=== PATIENT | female | born 1970 | race Caucasian/White ===

== ENCOUNTER → 2018-05-15 13:32 | Outpatient (CLI) | payer BC, SELFPAY ==
--- NOTE | 2018-05-15 13:36 | US_ITS ---
US transvaginal HISTORY: Enlarged uterus, pelvic pain ITS.REASON: US T/V- Pelvic pain check for fibroids ORDERING PHYSICIAN: Amy Santamaria MD PATIENT AGE: 47 years Comparison: None FINDINGS: UTERUS: The uterus measures 10 x 6 x 7 cm. Combined endometrial thickness is 9 mm. The uterus is retroverted. There is a 3.8 x 3 cm fibroid in the lower uterine segment. 3 cm fibroid also noted in the fundal area. RIGHT OVARY: 3 x 2.7 cm. There is a 2.9 x 2.4 cm cyst within the right ovary with low-level internal echoes consistent with a hemorrhagic cyst. LEFT OVARY: 2.9 x 2 cm CUL-DE-SAC FLUID: Small amount fluid is present in posterior cul-de-sac and around the right ovary OTHER FINDINGS: None IMPRESSION: 1. Enlarged uterus with fibroid involvement. The endometrium is upper normal at 9 mm 2. 2.9 cm hemorrhagic ovarian cyst on the right. 3. Small amount of fluid in the cul-de-sac and around the right ovary
== END ==
PROVIDERS: PCP Family Medicine; Visit Provider Obstetrics & Gynecology
DX: D21.9 Benign neoplasm of connective and other soft tissue, unspecified (principal); R10.2 Pelvic and perineal pain
CPT/HCPCS: 76830

== ENCOUNTER → 2018-07-18 15:16 | Outpatient (CLI) | payer BC, SELFPAY ==
[2018-07-18 15:30] LABS: Basophils # 0.1 K/mm3 (0-0.2); Basophils % 0.7 % (0.1-2.0); Eosinophils # 0.2 K/mm3 (0.0-0.4); Eosinophils % 2.2 % (0.1-12.0); Hematocrit 37.6 % (37.0-47.0); Lymphocytes # 2.1 K/mm3 (0.7-4.5); Lymphocytes % 25.9 % (10-50); Mean Corpuscular HGB Conc 34.7 g/dL (31.8-35.4); Mean Corpuscular Hemoglobin 30.5 pg (27.0-31.2); Mean Corpuscular Volume 87.9 fl (81-99); Mean Platelet Volume 6.8 fl (7.4-10.4); Monocytes # 0.5 K/mm3 (0.1-1.0); Monocytes % 5.6 % (1.7-9.3); Neutrophils # 5.2 K/mm3 (1.8-7.8); Neutrophils % 65.6 % (37.0-80.0); Platelet Count 361 K/mm3 (142-424); Red Blood Count 4.28 M/mm3 (4.20-5.40); Red Cell Distribution Width 12.1 % (11.5-17.5)
[2018-07-18 15:52] LABS: Anion Gap 10.5 mEq/L (5-15); Blood Urea Nitrogen 12 mg/dL (7-18); Calcium 8.7 mg/dL (8.5-10.1); Carbon Dioxide 29 mmol/L (21.0-32.0); Chloride 105 mmol/L (98-107); Creatinine,Serum 0.66 mg/dL (0.55-1.02); Estimated Glomerular Filt Rate 97 ml/min (>60); GFR (African American) 117 ML/MIN (>60); Potassium 3.5 mmoL/L (3.5-5.1); Sodium 141 mmol/L (136-145)
[2018-07-18 16:18] LABS: Glucose 86 mg/dL (74-106)
== END ==
PROVIDERS: Visit Provider Surgery
DX: Z01.818 Encounter for other preprocedural examination (principal); K46.9 Unspecified abdominal hernia without obstruction or gangrene
CPT/HCPCS: 36415; 80048; 85025

== ENCOUNTER → 2018-07-25 15:48 | Outpatient (CLI) | payer BC, SELFPAY ==
--- NOTE | 2018-07-25 15:55 | XR_ITS ---
XR chest 2V HISTORY: Shortness of breath ITS.REASON: SOB ORDERING PHYSICIAN: Kathy Sutton MD PATIENT AGE: 47 years COMPARISON: 11/24/2012 FINDINGS: The cardiomediastinal silhouette and pulmonary vascularity are within normal limits. The lungs are clear without infiltrates, suspicious nodules, or pleural effusions. No acute bony abnormalities. IMPRESSION: Negative chest, no acute finding
== END ==
PROVIDERS: PCP Emergency Medicine; Visit Provider Emergency Medicine
DX: R06.02 Shortness of breath (principal)
CPT/HCPCS: 71046

== ENCOUNTER 2018-07-30 06:01 | Inpatient (IN) ==
[2018-07-30 06:57] LABS: Basophils # 0.1 K/mm3 (0-0.2); Basophils % 0.9 % (0.1-2.0); Eosinophils # 0.1 K/mm3 (0.0-0.4); Eosinophils % 2.1 % (0.1-12.0); Hematocrit 44.9 % (37.0-47.0); Hemoglobin 14.9 g/dL (12.2-16.2); Lymphocytes # 0.6 K/mm3 (0.7-4.5); Lymphocytes % 10.6 % (10-50); Mean Corpuscular HGB Conc 33.2 g/dL (31.8-35.4); Mean Corpuscular Hemoglobin 29.7 pg (27.0-31.2); Mean Corpuscular Volume 89.5 fl (81-99); Mean Platelet Volume 7.2 fl (7.4-10.4); Monocytes # 0.4 K/mm3 (0.1-1.0); Monocytes % 7.8 % (1.7-9.3); Neutrophils # 4.2 K/mm3 (1.8-7.8); Neutrophils % 78.7 % (37.0-80.0); Platelet Count 264 K/mm3 (142-424); Red Blood Count 5.02 M/mm3 (4.20-5.40); Red Cell Distribution Width 12.4 % (11.5-17.5); White Blood Count 5.3 K/mm3 (4.8-10.8)
[2018-07-30 07:15] LABS: Albumin Level 3.4 gm/dL (3.4-5.0); Anion Gap 12.7 mEq/L (5-15); Bilirubin,Total 0.2 mg/dL (0.2-1.0); Calcium 8.4 mg/dL (8.5-10.1); Globulin 3.4 gm/dl (1.3-3.2); Potassium 3.7 mmoL/L (3.5-5.1); Total Protein,Serum 6.8 gm/dL (6.4-8.2)
--- NOTE | 2018-07-30 07:19 | Progress Note ---
[facility] Anesthesia Checklist - Patient Identification Patient Identification: Arm Band, Verbal (Name & ) - Structural Data Admitted From: Home Planned Operative Procedure/s: ROHAN/Umbilical hernia repair Consent for Planned Operative Procedure(s) Verified: Yes Verified Documents: Surgical Consent, History and Physical - NPO Status Verified Time NPO: 00:00 - Chart Verification Results Verified: CBC, HCG - Additional verifications Patient : No Anesthesia Reactions: No - Airway Assessment C-Spine Mobility Assessed: Yes TMJ Mobility Assessed: Yes Dentition: Good Dentition (Front upper crowns) - Neurological Assessment Level of Consciousness: Awake Hx Seizures: No Numbness or tingling in extremities: No - Anesthesia Plan Anesthesia Risk discussed: Yes Anesthesia Plan: Verified ASA Class: II Anesthesia Type: General (with intrathecal narcotic) [facility] History I have reviewed the patient's past medical history: Yes Medical History: Reports:: Gastroesophageal Reflux Disease(GERD) Denies:: Anxiety, Cancer, Chronic Obstructive Pulmonary Disease (COPD), Depression, Diabetes Mellitus Type 1, Diabetes Mellitus Type 2, Hyperlipidemia, Hypertension, MRSA, Seizures *Have you ever received a pneumonia vaccine?: No *Have you received a flu vaccine this season?: No Other Medical History: Reports: Anemia. Denies: Blood Transfusion Reaction Other Surgeries: Yes: Other Amputation: No Fractures: No - *Social History Educational Level: Completed High School Smoking Status: Never smoker Alcohol Intake: never Substance Use Type: denies use *Occupational Status:: employed Housing: house Household Members: spouse *Travel in the last 8 weeks: None - Psychiatric History Expresses thoughts of harming self/others: None Suicide Plan Description: No Plan Pschychiatric History:: Denies:: Anxiety, Depression Family Hx:: No significant family history
--- NOTE | 2018-07-30 10:48 | Operative Note ---
Date of procedure: 07/30/18 Pre-op Diagnosis:: Umbilical hernia Post-op Diagnosis:: Same Procedure performed:: Open repair of umbilical hernia with placement of medium sized Bard ventral X mesh (6.4 cm) Surgeon:: Jayden Winn MD MIXER LEVER OPERATOR:: Other Anesthesia: GETA Estimated blood loss (mL): 5 Clinical Note:: Patient is a 47-year-old white female originally referred by Dr. Amy Santamaria for umbilical hernia. Patient has seen Dr. Santamaria for symptoms of dyspareunia, dysfunctional uterine bleeding, and fibroids. She is scheduled for open total abdominal hysterectomy. Patient noted a hernia at her umbilical area. She has had this for several years. However it has increased in size and become more symptomatic. She was sent for surgical consultation for consideration of combined procedure under the same anesthetic. I had seen her a couple of weeks ago in the office. Tentative plan is for open hysterectomy and open umbilical hernia during the same anesthetic. Operative findings:: She had approximately a 15 mm defect with herniated preperitoneal fat with a redundant hernia sac. This was somewhat towards the supraumbilical location. Operative note:: She was maintained in the operating room after she had undergone gynecologic procedure Via Pfannenstiel incision. This was not closed and additional draping was applied to allow for umbilical hernia repair. Supraumbilical incision was made as the hernia was somewhat in a supraumbilical location. Dissection was carried down through subcutaneous tissues and hernia sac was encountered. There was herniated preperitoneal fat and hernia sac. Hernia sac was incised. Dissection was carried out dissecting free the herniated preperitoneal fatty tissues and redundant peritoneum of the hernia sac down to normal fascia. The defect measured about 15 mm or less. A medium sized Bard ventral X mesh measuring 6.4 cm in diameter was inserted into the peritoneal cavity via the umbilical hernia defect. The "tails" of the mesh were sutured superiorly and inferiorly to the fascial edges with several interrupted 2-0 Prolene sutures. The "tails" of the mesh were then cut flush with the fascia. Fascia was closed over the mesh with interrupted 0 Ethibond sutures. Next inspection and palpation via the low transverse Pfannenstiel incision was carried out which revealed good placement of the mesh with good fascial coverage. The umbilical sub-dermis was then reapproximated to the underlying fascia with a single 2-0 Vicryl suture. Skin was closed with 4-0 Monocryl in a subcuticular fashion. Dressing was applied. At the completion of the hernia repair gynecology proceeded with closure of Pfannenstiel incision. Condition: stable Disposition: PACU Specimens:: Hernia sac and contents Complications:: None immediately apparent
--- NOTE | 2018-07-30 11:40 | Operative Note ---
Date of procedure: 07/30/18 Pre-op Diagnosis:: 1. Chronic pelvic pain 2. Dyspareunia 3. Heavy menstrual bleeding 4. Uterine fibroids 5. Ventral wall hernia Post-op Diagnosis:: 1. Chronic pelvic pain 2. Dyspareunia 3. Heavy menstrual bleeding 4. Uterine fibroids 5. Ventral wall hernia Procedure performed:: Total abdominal hysterectomy, bilateral salpingectomy (concurrent hernia repair by general surgery, with separate operative note) Surgeon:: Amy Santamaria MD Anesthesia: GETA Estimated blood loss (mL): 400 Operative findings:: grossly enlarged uterus with multiple fibroids grossly normal appearing fallopian tubes and ovaries bilaterally Operative note:: The patient was taken to the operating room and general anesthesia was administe red without difficulty. She was prepped and draped in the supine position. A Pfannenstiel skin incision was made approximately 2 cm above the pubic symphysis with a scalpel and carried down to the underlying layer of fascia. The fascia was incised in the midline and extended laterally sharply. The rectus muscles were sharply dissected off the fascia and in the midline. The peritoneum was turned and sharply, with good visualization of the underlying structures. The peritoneal incision was extended bluntly. A survey of the patient's pelvis and abdomen revealed a grossly enlarged and bulky uterus, with numerous fibroid tumors. Bilateral ovaries and fallopian tubes appeared normal. At this time, the patient was placed in Trendelenburg and a Heber retractor was placed in the abdomen; the bowel was packed with moist laparotomy sponges. A double tooth tenaculum was placed on the uterine fundus and the uterus was elevated out of the pelvis. The round ligaments were identified and transected using Enseal. The anterior lip of the broad ligament was dissected medially on both sides and the bladder flap was created digitally. The posterior leaf of the broad ligament was dissected until the ureters were able to be identified on either side and noted to be free of the forthcoming adnexal pedicles. Infundibulopelvic ligaments were ligated/transected using Enseal on either side, with excellent hemostasis noted. The fallopian tubes on either side were clamped transected and the specimens were set aside for pathology. The uterine arteries were skeletonized on either side, and were clamped, ligated/transected using Enseal, with excellent hemostasis. The bladder flap was further bluntly dissected off the lower uterine segment with excellent hemostasis; some oozing was noted from the vesicouterine peritoneal reflection, with some blood tinged urine noted during the case, however no bladder injury was identified. The cardinal and uterosacral ligaments were clamped transected/ligated on both sides until the vaginal mucosa was entered. The vaginal incision was extended circumferentially with the Jorganson scissors; the uterus and cervix were removed abdominally and sent for pathology, along with the fallopian tubes. The vaginal cuff angles were closed 0 Vicryl [id number] sutures and were transfixed to the ipsilateral cardinal and uterosacral ligaments. The remainder of the vaginal cuff was closed with 0 Vicryl interrupted sutures. The pelvis was copiously irrigated with a solution of sterile water. The cuff had some oozing at the juncture of the vaginal mucosa and the bladder, requiring additional sutures to be placed for hemostasis. Again, the bladder was inspected for evidence of injury and not found. All pedicles were reexamined a nd remained hemostatic. All instruments were removed from the patient's abdomen, and Dr. Winn scrubbed in to perform the hernia repair; please see separate op note detailing that procedure. After the hernia repair was completed, the vaginal cuff and all pedicles were re-examined and noted to be hemostatic. The peritoneum was closed with 2-0 Vicryl in a running fashion. The fascia was closed with #1 Vicryl in a running fashion. The skin was closed with jonny. The patient tolerated the procedure well; sponge/lap/needle and instrument counts were correct 2. She was taken to the recovery room awake in stable condition. Estimated blood loss: 400 cc. Condition: stable Disposition: PACU Specimens:: Uterus, cervix, bilateral fallopian tubes Complications:: None
--- NOTE | 2018-07-30 11:54 | Progress Note ---
[facility] Anesthesia Record Part II Discharge Time: 12:20 Destination: Medical Surgical Department PACU nurse assessment reviewed?: Yes Patient Condition:: Good Anesthesia Complications:: None Swallowing reflex intact?: Yes Cyanosis?: No
--- NOTE | 2018-07-30 11:54 | Progress Note ---
[facility] Anesthesia Record Part I Intake, IV Amount: 1,700 Estimated blood loss (mL): 400 Urine output (mL): 200 Blood Products used (#): none Blood Pressure: 115/76 SaO2: 96 Pulse Rate: 87 Respiratory Rate: 12 Temperature: 97.5 F Patient is:: Drowsy, Nasal O2, Stable Stable to PACU at:: 11:50
[2018-07-31 06:40] LABS: Hematocrit 29.6 % (37.0-47.0)
[2018-07-31 07:01] LABS: Hemoglobin 9.9 g/dL (12.2-16.2)
[2018-07-31 07:05] LABS: Anion Gap 9.8 mEq/L (5-15); Potassium 3.8 mmoL/L (3.5-5.1)
[2018-07-31 07:17] LABS: Calcium 7.3 mg/dL (8.5-10.1)
--- NOTE | 2018-07-31 07:40 | Pharmacy Consult Notes ---
[facility] Pharmacy VTE Monitoring - Patient Demographics Admission date: 07/30/18 Report Date: 07/31/18 Time: 07:40 Allergies/Adverse Reactions: Patient Allergies No Known Allergies Allergy (Verified 07/30/18 06:26) Height: 1.57 m Weight: 65.317 kg - VTE Risk Labs: VTE Related Lab Results Hgb 9.9 g/dL (12.2-16.2) L D 07/31/18 06:10 Hct 29.6 % (37.0-47.0) L 07/31/18 06:10 Plt Count 264 K/mm3 (142-424) 07/30/18 06:44 BUN 15 mg/dL (7-18) 07/31/18 06:10 Creatinine 0.63 mg/dL (0.55-1.02) 07/31/18 06:10 Estimated Creat Clear 116 mL/min (50-200) 07/31/18 06:10 - Prophylaxis VTE Prophylaxis Ordered?: Yes Types of VTE Prophylaxis: IPCS Thigh High Location of Applied Device: Bilateral Lower Extremeties - VTE Diagnosis Confirmed Treatment or plan recommended: Continue Current Treatment
--- NOTE | 2018-07-31 22:49 | Progress Note ---
Internal Medicine - PN: Subj *Date: 07/31/18 *Time: 12:00 Interval history: POD #1 S/P ROHAN No complaints Ambulating and voiding without difficulty Urine clear Tolerating regular diet Asymptomatic with postop anemia Hgb 9.9 (14.9 at admission) Exam Vital signs and Labs for Last 24 Hours: Temp Pulse Resp BP Pulse Ox 98.7 F 86 16 106/70 L 95 07/31/18 19:53 07/31/18 19:53 07/31/18 19:53 07/31/18 19:53 07/31/18 19:53 Laboratory Results - last 24 hr 07/31/18 06:10: Hgb 9.9 L D, Hct 29.6 L 07/31/18 06:10: Sodium 138, Potassium 3.8, Chloride 104, Carbon Dioxide 28, Anion Gap 9.8, BUN 15, Creatinine 0.63, Estimated Creat Clear 116, Estimated GFR 102, Est GFR ( Amer) 124, Glucose 87, Calcium 7.3 L D I & O for Last 24 hours: Intake & Output 07/29/18 07/30/18 07/31/18 08/01/18 11:59 11:59 11:59 11:59 Intake Total 1700 / 1700 2204.4 / 2204.4 1260 / 1260 Output Total 810 / 810 800 / 800 Balance 1700 / 1700 1394.4 / 1394.4 460 / 460 Weight 144 lb 144 lb Narrative: CONSTITUTIONAL: no acute distress HEENT: mucous membranes moist PULMONARY: breathing unlabored without audible wheezes CV: no tachycardia or visible JVD; normal LE peripheral pulses ABD: soft, ND, no guarding. Appropriately tender. SKIN: incision well approximated with no drainage, erythema or induration EXT: 1+ edema LEs NEURO: alert/oriented, no altered mental status PSYCH: appropriate mood and demeanor without anxiety/depression Assessment and Plan (1) Postoperative anemia due to acute blood loss Current visit: Yes Status: Acute Category: Medical Code(s): D62 - Acute posthemorrhagic anemia (2) S/P hysterectomy Current visit: Yes Status: Acute Category: Surgical Code(s): Z90.710 - Acquired absence of both cervix and uterus (3) Uterine fibroid Current visit: No Status: Acute Category: Medical Code(s): D25.9 - Leiomyoma of uterus, unspecified (4) Dyspareunia Current visit: No Status: Acute Category: Medical (5) Heavy menstrual bleeding Current visit: No Status: Acute Category: Medical Code(s): N92.0 - Excessive and frequent menstruation with regular cycle (6) Umbilical hernia Current visit: No Status: Acute Category: Medical Code(s): K42.9 - Umbilical hernia without obstruction or gangrene (7) Pelvic pain Current visit: No Status: Acute Category: Medical Code(s): R10.2 - Pelvic and perineal pain (8) Enlarged uterus Problem details: palpable fibroid on pelvic exam Current visit: No Status: Acute Category: Medical Code(s): N85.2 - Hypertrophy of uterus - Assessment and plan all Dx Assessment and Plan for all problems:: Routine postop care Making appropriate progress following surgery Asymptomatic with postop anemia Anticipate discharge tomorrow
--- NOTE | 2018-08-01 14:32 | Progress Note ---
Internal Medicine - PN: Subj *Date: 08/01/18 *Time: 14:29 Interval history: POD #2 Patient has had increased nausea today and less po intake No abdominal distension and bowel sounds have been normal + flatus Voiding normal amount of clear urine No vaginal bleeding Exam Vital signs and Labs for Last 24 Hours: Temp Pulse Resp BP Pulse Ox 98.1 F 79 18 120/89 95 08/01/18 08:00 08/01/18 08:00 08/01/18 08:00 08/01/18 08:00 08/01/18 08:00 I & O for Last 24 hours: Intake & Output 07/30/18 07/31/18 08/01/18 08/02/18 11:59 11:59 11:59 11:59 Intake Total 1700 / 1700 2204.4 / 2204.4 2662 / 2662 Output Total 810 / 810 1100 / 1100 Balance 1700 / 1700 1394.4 / 1394.4 1562 / 1562 Weight 144 lb Narrative: CONSTITUTIONAL: no acute distress HEENT: mucous membranes moist PULMONARY: breathing unlabored without audible wheezes CV: no tachycardia or visible JVD; normal LE peripheral pulses ABD: soft, ND, no guarding. Appropriately tender SKIN: incision well approximated with no drainage, erythema or induration EXT: no edema LEs NEURO: alert/oriented, no altered mental status PSYCH: appropriate mood and demeanor without visible anxiety/depression Assessment and Plan (1) Postoperative anemia due to acute blood loss Current visit: Yes Status: Acute Category: Medical Code(s): D62 - Acute posthemorrhagic anemia (2) S/P hysterectomy Current visit: Yes Status: Acute Category: Surgical Code(s): Z90.710 - Acquired absence of both cervix and uterus (3) Uterine fibroid Current visit: No Status: Acute Category: Medical Code(s): D25.9 - L eiomyoma of uterus, unspecified (4) Dyspareunia Current visit: No Status: Acute Category: Medical (5) Heavy menstrual bleeding Current visit: No Status: Acute Category: Medical Code(s): N92.0 - Excessive and frequent menstruation with regular cycle (6) Umbilical hernia Current visit: No Status: Acute Category: Medical Code(s): K42.9 - Umbilical hernia without obstruction or gangrene (7) Pelvic pain Current visit: No Status: Acute Category: Medical Code(s): R10.2 - Pelvic and perineal pain (8) Enlarged uterus Problem details: palpable fibroid on pelvic exam Current visit: No Status: Acute Category: Medical Code(s): N85.2 - Hypertrophy of uterus - Assessment and plan all Dx Assessment and Plan for all problems:: Continue IV hydration with anti-emetics as necessary Discharge will be held until tomorrow in order to assess that she is sufficiently tolerating po Will repeat H/H tonight to f/u on postop anemia
[2018-08-01 19:09] LABS: Hemoglobin 9.3 g/dL (12.2-16.2)
[2018-08-01 19:11] LABS: Hematocrit 26.9 % (37.0-47.0)
--- NOTE | 2018-08-02 12:50 | Discharge Summary ---
General - General Admission date:: 07/30/18 Discharge date: 08/02/18 HPI HPI: Admitted for abdominal hysterectomy for management of pelvic pain, HMB and uterine fibroids Postop course complicated by nausea with some slower return to bowel function, but no signs of ileus or obstruction She is discharged home on POD #3 Hospital Course Hospital Course: as per HPI Objective Vital signs: Temp Pulse Resp BP Pulse Ox 97.9 F 56 L 18 139/85 95 08/02/18 08:05 08/02/18 08:05 08/02/18 08:05 08/02/18 08:05 08/02/18 08:05 Narrative: CONSTITUTIONAL: no acute distress HEENT: mucous membranes moist PULMONARY: breathing unlabored without audible wheezes CV: no tachycardia or visible JVD; normal LE peripheral pulses ABD: soft, NT/ND, no guarding SKIN: incision well approximated with no drainage, erythema or induration EXT: no edema LEs NEURO: alert/oriented, no altered mental status PSYCH: appropriate mood and demeanor without anxiety/depression Results Labs on day of discharge: Labs from last 24 hours 08/01/18 19:00 Hgb 9.3 L Hct 26.9 L DS: Diagnosis - Discharge Diagnosis (1) Postoperative anemia due to acute blood loss Status: Acute (2) S/P hysterectomy Status: Acute (3) Uterine fibroid Status: Acute (4) Dyspareunia Status: Acute (5) Heavy menstrual bleeding Status: Acute (6) Umbilical hernia Status: Acute (7) Pelvic pain Status: Acute (8) Enlarged uterus Status: Acute Problem details: palpable fibroid on pelvic exam Discharge Plan - Patient Discharge Instructions ACTIVITY: Limited activity DIET: regular diet Additional Instructions: NO HEAVY LIFTING, NO STRENUOUS ACTIVITY AND NOTHING IN THE VAGINA FOR 6 WEEKS. Patient Instructions: How to Care for a Surgical Wound, Hysterectomy -- Open Surgery, DI for Hernia Repair, Surgical Site Infection, DI for Postoperative Pain, How to Care for a Surgical Wound-Keeler - Follow up Plan Follow up with: Jayden Winn MD [Staff Physician] - 08/08/18 9:30 am Amy Santamaria MD [Staff Physician] - 08/08/18 10:15 am Disposition: Home, Self-Long Term Medications: Home Medications Medication Instructions Recorded Confirmed Type cyanocobalamin (vitamin B-12) 1,000 mcg PO DAILY 05/12/18 07/29/18 History 1,000 mcg capsule ferrous sulfate 325 mg (65 mg 325 mg PO DAILY tab 05/12/18 07/29/18 History iron) tablet fluticasone propionate 50 1 spray INTRANASAL HS 34 Days #16 g 05/12/18 07/29/18 History mcg/actuation nasal spray,suspension omeprazole 20 mg capsule,delayed 20 mg PO DAILY 30 Days cap 05/12/18 07/29/18 History release Ketorolac Tromethamine [Toradol 10 mg PO Q6H #40 tab 08/02/18 Rx 10mg tablet] Oxycodone HCl [OxyIR 5mg tablet] 5 mg PO Q4HP PRN #30 tab 08/02/18 Rx Promethazine HCl [Phenergan 25mg 25 mg PO Q6HP PRN #30 tab 08/02/18 Rx tab] Prescriptions/Medication Reconciliation: New Promethazine HCl [Phenergan 25mg tab] 25 mg PO Q6HP PRN #30 tab PRN Reason: Nausea And Vomiting Oxycodone HCl [OxyIR 5mg tablet] 5 mg PO Q4HP PRN #30 tab PRN Reason: Moderate Pain Ketorolac Tromethamine [Toradol 10mg tablet] 10 mg PO Q6H #40 tab Continue omeprazole 20 mg capsule,delayed release 20 mg PO DAILY 30 Days cap cyanocobalamin (vitamin B-12) 1,000 mcg capsule 1,000 mcg PO DAILY ferrous sulfate 325 mg (65 mg iron) tablet 325 mg PO DAILY tab fluticasone propionate 50 mcg/actuation nasal spray,suspension 1 spray INTRANASAL HS 34 Days #16 g
== END 2018-08-02 14:30 | disposition home or self-care (01) | DRG 742 ==
LOC: OR 06:01 → OB 12:30
PROVIDERS: ADMIT Obstetrics & Gynecology; ATTEND Obstetrics & Gynecology
CPT/HCPCS: 36415; 80048; 80053; 81001; 81025; 85014; 85018; 85025; 86850; 94761; 96374; C1781; J2405

== ENCOUNTER → 2018-09-23 14:08 | Outpatient (POV) | payer BC, SELFPAY ==
[2018-09-23 15:11] LABS: Basophils # 0.1 K/mm3 (0-0.2); Basophils % 0.6 % (0.1-2.0); Eosinophils # 0.2 K/mm3 (0.0-0.4); Hematocrit 37.3 % (37.0-47.0); Hemoglobin 12.6 g/dL (12.2-16.2); Lymphocytes # 2.2 K/mm3 (0.7-4.5); Lymphocytes % 25.9 % (10-50); Mean Corpuscular HGB Conc 33.7 g/dL (31.8-35.4); Mean Corpuscular Hemoglobin 28.6 pg (27.0-31.2); Mean Corpuscular Volume 84.8 fl (81-99); Mean Platelet Volume 6.8 fl (7.4-10.4); Monocytes # 0.6 K/mm3 (0.1-1.0); Monocytes % 6.8 % (1.7-9.3); Neutrophils # 5.6 K/mm3 (1.8-7.8); Neutrophils % 64.8 % (37.0-80.0); Platelet Count 364 K/mm3 (142-424); Red Cell Distribution Width 12.7 % (11.5-17.5); White Blood Count 8.7 K/mm3 (4.8-10.8)
[2018-09-23 17:20] LABS: Alanine Aminotransferase 19 U/L (12-78); Albumin Level 3.9 gm/dL (3.4-5.0); Albumin/Globulin Ratio 1.3 (1.1-1.8); Alkaline Phosphatase 54 U/L (46-116); Aspartate Amino Transferase 7 U/L (15-37); Bilirubin,Total 0.1 mg/dL (0.2-1.0); Blood Urea Nitrogen 12 mg/dL (7-18); Calcium 9.1 mg/dL (8.5-10.1); Carbon Dioxide 25 mmol/L (21.0-32.0); Chloride 103 mmol/L (98-107); Estimated Glomerular Filt Rate 108 ml/min (>60); GFR (African American) 131 ML/MIN (>60); Glucose 94 mg/dL (74-106); Sodium 140 mmol/L (136-145); Total Protein,Serum 6.9 gm/dL (6.4-8.2)
[2018-09-25 10:51] LABS: Hep A Ab, IgM Negative (Negative); Hepatitis B Core Antibody IgM Negative (Negative); Hepatitis B Surface Antigen Negative (Negative)
[2018-09-26 08:06] LABS: Hepatitis C Antibody <0.1 s/co ratio (0.0-0.9)
[2018-09-26 08:12] LABS: QuantiFERON-TB Gold Plus Negative (Negative)
== END ==
PROVIDERS: Visit Provider Dermatology
DX: L40.0 Psoriasis vulgaris (principal); Z79.899 Other long term (current) drug therapy
CPT/HCPCS: 36415; 80053; 80074; 85025; 86480

== ENCOUNTER → 2021-02-07 17:45 | Outpatient (CLI) | payer BC, SELFPAY ==
--- NOTE | 2021-02-07 17:56 | XR_ITS ---
PROCEDURE INFORMATION: Exam: XR Chest Exam date and time: 02/07/21 05:56 PM Age: 50 years old Clinical indication: Pain; On breathing; Additional info: Covidsymptoms TECHNIQUE: Imaging protocol: XR of the chest. Views: 1 view. COMPARISON: CR CXR2V XR chest 2V 07/25/18 03:56 PM FINDINGS: Lungs: Unremarkable. No consolidation. Pleural spaces: Unremarkable. No pleural effusion. No pneumothorax. Heart/Mediastinum: Unremarkable. No cardiomegaly. Bones/joints: Unremarkable. IMPRESSION: No acute findings.
[2021-02-07 18:39] LABS: Adenovirus,PCR Not Detected (NotDetected); Bordetella Pertussis Not Detected (NotDetected); Chlamydophila Pneumoniae, PCR Not Detected (NotDetected); Coronavirus 229E Not Detected (NotDetected); Coronavirus NL63 Not Detected (NotDetected); Coronavirus OC43 Not Detected (NotDetected); Coronovirus HKU1,PCR Not Detected (NotDetected); Human Metapneumovirus Not Detected (NotDetected); Influenza A, PCR Not Detected (NotDetected); Influenza AH1, 2009 Not Detected (NotDetected); Influenza AH1, PCR Not Detected (NotDetected); Influenza AH3,PCR Not Detected (NotDetected); Influenza B, PCR Not Detected (NotDetected); Mycoplasma Pneumoniae, PCR Not Detected (NotDetected); Parainfluenza 1, PCR Not Detected (NotDetected); Parainfluenza 2, PCR Not Detected (NotDetected); Parainfluenza 3, PCR Not Detected (NotDetected); Parainfluenza 4, PCR Not Detected (NotDetected); Respiratory Syncytial Virus Not Detected (NotDetected); Rhinovirus/Enterovirus Not Detected (NotDetected)
[2021-02-07 18:54] LABS: Basophils # 0.1 K/mm3 (0-0.2); Basophils % 0.7 % (0.1-2.0); Eosinophils # 0.2 K/mm3 (0.0-0.4); Eosinophils % 2.1 % (0.1-12.0); Hematocrit 38.4 % (37.0-47.0); Hemoglobin 12.7 g/dL (12.2-16.2); Lymphocytes # 2.2 K/mm3 (0.7-4.5); Lymphocytes % 25.7 % (10-50); Mean Corpuscular HGB Conc 32.9 g/dL (31.8-35.4); Mean Corpuscular Hemoglobin 29.7 pg (27.0-31.2); Mean Platelet Volume 7.2 fl (7.4-10.4); Monocytes # 0.6 K/mm3 (0.1-1.0); Monocytes % 7.3 % (1.7-9.3); Neutrophils # 5.6 K/mm3 (1.8-7.8); Neutrophils % 64.1 % (37.0-80.0); Platelet Count 379 K/mm3 (142-424); Red Blood Count 4.27 M/mm3 (4.20-5.40); Red Cell Distribution Width 12.3 % (11.5-17.5); White Blood Count 8.7 K/mm3 (4.8-10.8)
[2021-02-07 19:15] LABS: Strep Scrn Group A (Rapid) Negative (Negative)
== END ==
PROVIDERS: PCP Nurse Practitioner; Visit Provider Nurse Practitioner
DX: Z20.822 Contact with and (suspected) exposure to COVID-19 (principal)
CPT/HCPCS: 71045; 85025; 87430; 87486; 87581; 87633; 87798

== ENCOUNTER → 2021-03-07 18:08 | Outpatient (CLI) | payer BC, SELFPAY ==
[2021-03-07 18:55] LABS: Basophils # 0.1 K/mm3 (0-0.2); Basophils % 1.3 % (0.1-2.0); Eosinophils # 0.3 K/mm3 (0.0-0.4); Eosinophils % 3.3 % (0.1-12.0); Hematocrit 39.6 % (37.0-47.0); Hemoglobin 13.3 g/dL (12.2-16.2); Lymphocytes # 2.1 K/mm3 (0.7-4.5); Lymphocytes % 22.9 % (10-50); Mean Corpuscular HGB Conc 33.6 g/dL (31.8-35.4); Mean Corpuscular Hemoglobin 30.5 pg (27.0-31.2); Mean Corpuscular Volume 90.7 fl (81-99); Mean Platelet Volume 8.1 fl (7.4-10.4); Monocytes # 0.6 K/mm3 (0.1-1.0); Monocytes % 6.6 % (1.7-9.3); Neutrophils # 5.9 K/mm3 (1.8-7.8); Neutrophils % 65.8 % (37.0-80.0); Platelet Count 362 K/mm3 (142-424); Red Blood Count 4.37 M/mm3 (4.20-5.40); Red Cell Distribution Width 12.8 % (11.5-17.5); Strep Scrn Group A (Rapid) Negative (Negative); White Blood Count 8.9 K/mm3 (4.8-10.8)
== END ==
PROVIDERS: PCP Family Medicine; Visit Provider Nurse Practitioner
DX: Z20.822 Contact with and (suspected) exposure to COVID-19 (principal)
CPT/HCPCS: 36415; 85025; 87430

== ENCOUNTER → 2021-04-11 14:30 | Outpatient (CLI) | payer BC, SELFPAY ==
[2021-04-11 15:32] LABS: Coronavirus 19, PCR Not Detected (NotDetected); Influenza A, PCR Not Detected (NotDetected); Influenza B, PCR Not Detected (NotDetected)
[2021-04-11 15:41] LABS: Basophils # 0.1 K/mm3 (0-0.2); Basophils % 1.3 % (0.1-2.0); Eosinophils # 0.2 K/mm3 (0.0-0.4); Eosinophils % 2.5 % (0.1-12.0); Hematocrit 43.1 % (37.0-47.0); Hemoglobin 14.5 g/dL (12.2-16.2); Lymphocytes % 25.3 % (10-50); Mean Corpuscular HGB Conc 33.7 g/dL (31.8-35.4); Mean Corpuscular Hemoglobin 30.2 pg (27.0-31.2); Mean Corpuscular Volume 89.6 fl (81-99); Mean Platelet Volume 8.1 fl (7.4-10.4); Monocytes # 0.5 K/mm3 (0.1-1.0); Monocytes % 6.9 % (1.7-9.3); Platelet Count 375 K/mm3 (142-424); Red Blood Count 4.81 M/mm3 (4.20-5.40); Red Cell Distribution Width 12.7 % (11.5-17.5); White Blood Count 7.8 K/mm3 (4.8-10.8)
[2021-04-11 15:58] LABS: Strep Scrn Group A (Rapid) Negative (Negative)
== END ==
PROVIDERS: PCP Family Medicine; Visit Provider Nurse Practitioner
DX: Z20.822 Contact with and (suspected) exposure to COVID-19 (principal)
CPT/HCPCS: 36415; 85025; 87430; C9803; U0003; U0005

== ENCOUNTER → 2021-10-25 12:45 | Outpatient (CLI) | payer BC, SELFPAY | PROVIDERS: PCP Family Medicine; Visit Provider Nurse Practitioner | DX: Z20.822 Contact with and (suspected) exposure to COVID-19 (principal) | CPT/HCPCS: 87275; 87276; C9803; U0003; U0005 ==

== ENCOUNTER → 2022-01-25 10:25 | Outpatient (CLI) | payer BC, SELFPAY ==
[2022-01-25 17:57] LABS: Adenovirus,PCR Not Detected (NotDetected); Bordetella Pertussis Not Detected (NotDetected); Chlamydophila Pneumoniae, PCR Not Detected (NotDetected); Coronavirus 19, PCR Not Detected (NotDetected); Coronavirus 229E Not Detected (NotDetected); Coronavirus NL63 Not Detected (NotDetected); Coronavirus OC43 Not Detected (NotDetected); Coronovirus HKU1,PCR Not Detected (NotDetected); Influenza A, PCR Not Detected (NotDetected); Influenza AH1, 2009 Not Detected (NotDetected); Influenza AH1, PCR Not Detected (NotDetected); Influenza AH3,PCR Not Detected (NotDetected); Influenza B, PCR Not Detected (NotDetected); Mycoplasma Pneumoniae, PCR Not Detected (NotDetected); Parainfluenza 1, PCR Not Detected (NotDetected); Parainfluenza 2, PCR Not Detected (NotDetected); Parainfluenza 3, PCR Not Detected (NotDetected); Parainfluenza 4, PCR Not Detected (NotDetected); Respiratory Syncytial Virus Not Detected (NotDetected); Rhinovirus/Enterovirus Not Detected (NotDetected)
[2022-01-26 19:42] LABS: Human Metapneumovirus Detected (NotDetected)
== END ==
PROVIDERS: PCP Nurse Practitioner; Visit Provider Nurse Practitioner
DX: Z20.822 Contact with and (suspected) exposure to COVID-19 (principal); J06.9 Acute upper respiratory infection, unspecified; B97.81 Human metapneumovirus as the cause of diseases classified elsewhere
CPT/HCPCS: 87581; 87632; 87798; C9803; U0003; U0005

== ENCOUNTER → 2022-02-14 07:14 | Outpatient (CLI) | payer BC, SELFPAY ==
[2022-02-14 17:51] LABS: Basophils # 0.1 K/mm3 (0-0.2); Basophils % 0.9 % (0.1-2.0); Eosinophils # 0.2 K/mm3 (0.0-0.4); Eosinophils % 2.6 % (0.1-12.0); Hematocrit 40.5 % (37.0-47.0); Lymphocytes # 2.2 K/mm3 (0.7-4.5); Lymphocytes % 23.9 % (10-50); Mean Corpuscular HGB Conc 32.1 g/dL (31.8-35.4); Mean Corpuscular Hemoglobin 29.6 pg (27.0-31.2); Mean Corpuscular Volume 92.1 fl (81-99); Monocytes # 0.6 K/mm3 (0.1-1.0); Monocytes % 6.9 % (1.7-9.3); Neutrophils # 6.1 K/mm3 (1.8-7.8); Neutrophils % 65.8 % (37.0-80.0); Platelet Count 357 K/mm3 (142-424); Red Cell Distribution Width 12.8 % (11.5-17.5); White Blood Count 9.3 K/mm3 (4.8-10.8)
== END ==
PROVIDERS: PCP Nurse Practitioner; Visit Provider Nurse Practitioner
DX: H66.92 Otitis media, unspecified, left ear (principal)
CPT/HCPCS: 85025

== ENCOUNTER → 2022-07-10 17:05 | Outpatient (CLI) | payer BC, SELFPAY ==
--- NOTE | 2022-07-10 17:32 | ECG_ITS ---
APPROVED REPORT Exam: Resting ECG HR:68 bpm ECG Measurements Heart Rate 68 AXES UT 195 P 59 QRSd 90 QRS 1 QT 378 T 29 QTc 395 Conclusion SINUS RHYTHM NORMAL ECG UNCONFIRMED REPORT Electronically signed by : Denny Sánchez MD 07/11/2022 08:56:37
--- NOTE | 2022-07-10 17:36 | XR_ITS ---
PROCEDURE INFORMATION: Exam: XR Chest Exam date and time: 07/10/2022 5:37 PM Age: 51 years old Clinical indication: Other: Leg swelling; Additional info: Chest pressure, bilateral lower extremity edema TECHNIQUE: Imaging protocol: Radiologic exam of the chest. Views: 2 views. COMPARISON: CR XR CHEST PORTABLE 02/07/2021 6:05 PM FINDINGS: Lungs: No evidence of pneumonia or interstitial edema. Pleural spaces: Unremarkable. No pleural effusion. No pneumothorax. Heart/Mediastinum: Unremarkable. No cardiomegaly. Bones/joints: Unremarkable. IMPRESSION: No evidence of pneumonia or interstitial edema.
[2022-07-10 17:45] LABS: Basophils # 0.2 K/mm3 (0-0.2); Basophils % 1.5 % (0.1-2.0); Eosinophils # 0.2 K/mm3 (0.0-0.4); Eosinophils % 1.9 % (0.1-12.0); Hematocrit 43.4 % (37.0-47.0); Hemoglobin 14.8 g/dL (12.2-16.2); Lymphocytes % 28.8 % (10-50); Mean Corpuscular HGB Conc 34.1 g/dL (31.8-35.4); Mean Corpuscular Hemoglobin 29.7 pg (27.0-31.2); Mean Corpuscular Volume 87.1 fl (81-99); Mean Platelet Volume 7.4 fl (7.4-10.4); Monocytes # 0.5 K/mm3 (0.1-1.0); Monocytes % 4.7 % (1.7-9.3); Neutrophils # 6.7 K/mm3 (1.8-7.8); Neutrophils % 63.2 % (37.0-80.0); Platelet Count 416 K/mm3 (142-424); Red Blood Count 4.98 M/mm3 (4.20-5.40); Red Cell Distribution Width 12.5 % (11.5-17.5); White Blood Count 10.6 K/mm3 (4.8-10.8)
[2022-07-10 19:24] LABS: Alanine Aminotransferase 24 U/L (12-78); Albumin Level 4.6 g/dl (3.5-5.0); Albumin/Globulin Ratio 1.7 (1.1-1.8); Alkaline Phosphatase 61 U/L (38-126); Anion Gap 8.7 mEq/L (5-15); Aspartate Amino Transferase 26 U/L (14-36); Bilirubin,Total 0.5 mg/dl (0.2-1.3); Blood Urea Nitrogen 14 mg/dl (7-17); Calcium 9.4 mg/dl (8.4-10.2); Carbon Dioxide 30 mmol/L (22.0-30.0); Chloride 103 mmol/L (98-107); Estimated Glomerular Filt Rate 89 ml/min (>60); GFR (African American) 108 ML/MIN (>60); Globulin 2.7 g/dL (1.3-3.2); Glucose 91 mg/dl (74-100); Potassium 3.7 mmoL/L (3.5-5.1); Sodium 138 mmol/L (136-145); Total Protein,Serum 7.3 g/dl (6.3-8.2)
[2022-07-10 19:35] LABS: NT Pro Brain Natriuretic Pep. 15.8 pg/mL (0-125)
[2022-07-10 19:51] LABS: Troponin I < 0.01 ng/ml (0.00-0.034)
== END ==
PROVIDERS: PCP Family Medicine; Visit Provider Nurse Practitioner
DX: R07.89 Other chest pain (principal); R60.0 Localized edema
CPT/HCPCS: 36415; 71046; 80053; 83880; 84484; 85025; 93005

== ENCOUNTER → 2022-07-19 14:11 | Outpatient (CLI) | payer BC, SELFPAY ==
--- NOTE | 2022-07-19 14:12 | CA_ITS ---
FINAL REPORT CLINICAL HISTORY: chest pressure, bilateral lower extremity edema FINDINGS: Color Doppler, duplex Doppler and compression sonography of the bilateral lower extremities was performed. There is no evidence of deep venous thrombosis from the level of the groin to the calf. The deep veins are patent and compressible. IMPRESSION: No evidence of deep venous thrombosis bilateral lower extremities. Reviewed, Interpreted and Dictated by Jayden Spears III, MD Transcribed by Micki Ram Authenticated and [facility]
--- NOTE | 2022-07-19 14:12 | CA_ITS ---
APPROVED REPORT EXAM: Comprehensive 2D, Doppler, and color-flow Echocardiogram Tax Accounting Manager: Shayy Nj CRT Ht: 5 ft 2 in Wt: 155lbs BSA: 1.72 BP: 114/72 mmHg Indications: Chest Pain, Peripheral Edema, Covid multiple times 2D Dimensions LVOT 1.76 cm (M/F) 1.5-2.5 LA Volume 19.20 mL LA Volume Index 10.90 mL/m2 (M/F) 16-34 M-Mode Dimensions RVDd 2.13 cm (0.9-2.6) LA Diam 3.01 cm (1.9-4.0) LVDd 4.48 cm (3.5-5.7) Ao Diam 2.86 cm (2.0-3.7) LVDs 2.88 cm (3.5-5.7) IVSd 1.19 cm (0.6-1.1) PWd 0.72 cm (0.6-1.1) EF (Teich) 65.40% FS 35.70% EDV (Teich) 91.50 mL TAPSE 2.02 (<1.7) ESV (Teich) 31.70 mL LV Diastology E Decel Time 260.00 (160-240 msec) E/A Ratio 0.98 MED E' 9.80 (< 7 cm/sec) MED A' 11.60 cm/s E'/MED E' Ratio 7.27 (>14) LAT E' 11.40 (<10 cm/sec) LAT A' 10.50 cm/s E/LAT E' Ratio 6.25 (>14) Aortic Valve AO Peak GR. 5.60 mmHg Mitral Valve MV A Velocity 73.00 (40-130 cm/s) E/A Ratio 0.98 MV Decel. Time 260.00 (160-240 ms) Pulmonary Valve PV Peak Velocity 150.00 (50-150 cm/s) Tricuspid Valve TR P. Velocity 310.00 cm/s RAP Estimate 10.00 mmHg RVSP 48.50 mmHg Left Ventricle Left atrium is normal size, left ventricle is normal size, estimated ejection fraction 55% with no regional wall motion abnormality, diastolic parameters are within normal range. Right Ventricle Right atrium and right ventricle are normal size and contractility. Aortic Valve Aortic valve is grossly normal there is no aortic stenosis aortic insufficiency. Mitral Valve Mitral valve is grossly normal, there is trace mitral regurgitation. Tricuspid Valve Tricuspid grossly normal, there is trace tricuspid regurgitation, tricuspid regurgitation jet velocity is inadequate for calculation of the right ventricular systolic pressure. Pulmonic Valve Pulmonic valve is poorly visualized. Great Vessels Aortic root is normal size. Inferior vena cava is normal size with normal inspiratory collapse. Pericardium No significant pericardial effusion noted. Conclusion 1. Normal left ventricular size preserved left ventricular systolic function, estimated ejection fraction 55% with no regional wall motion abnormality, diastolic parameters are within normal range. 2. Trace mitral and tricuspid regurgitation. 3. No significant pericardial effusion noted. 4. Inferior vena cava is normal size with normal inspiratory collapse. Electronically signed by : Luis Enrique Lane MD 07/20/2022 15:16:01
== END ==
PROVIDERS: PCP Nurse Practitioner; Visit Provider Nurse Practitioner
DX: R07.89 Other chest pain (principal); R60.0 Localized edema
CPT/HCPCS: 93306; 93970

== ENCOUNTER → 2022-09-27 19:58 | Outpatient (CLI) | payer BC, SELFPAY ==
[2022-09-27 19:10] LABS: Basophils # 0.1 K/mm3 (0-0.2); Basophils % 0.6 % (0.1-2.0); Eosinophils # 0.2 K/mm3 (0.0-0.4); Hematocrit 42.5 % (37.0-47.0); Hemoglobin 13.7 g/dL (12.2-16.2); Lymphocytes # 2.1 K/mm3 (0.7-4.5); Lymphocytes % 25.1 % (10-50); Mean Corpuscular HGB Conc 32.2 g/dL (31.8-35.4); Mean Corpuscular Hemoglobin 29.2 pg (27.0-31.2); Mean Corpuscular Volume 90.5 fl (81-99); Mean Platelet Volume 7.7 fl (7.4-10.4); Monocytes # 0.6 K/mm3 (0.1-1.0); Monocytes % 7.2 % (1.7-9.3); Neutrophils # 5.4 K/mm3 (1.8-7.8); Platelet Count 341 K/mm3 (142-424); White Blood Count 8.3 K/mm3 (4.8-10.8)
[2022-09-27 19:24] LABS: Chloride 95 mmol/L (98-107); Potassium 4.1 mmoL/L (3.5-5.1); Sodium 138 mmol/L (136-145)
[2022-09-27 19:26] LABS: Alanine Aminotransferase 19 U/L (12-78); Aspartate Amino Transferase 24 U/L (14-36); Blood Urea Nitrogen 17 mg/dl (7-17); Estimated Glomerular Filt Rate 89 ml/min (>60); GFR (African American) 108 ML/MIN (>60)
[2022-09-27 19:27] LABS: Albumin Level 4.3 g/dl (3.5-5.0); Albumin/Globulin Ratio 1.9 (1.1-1.8); Alkaline Phosphatase 59 U/L (38-126); Anion Gap 17.1 mEq/L (5-15); Bilirubin,Total 0.3 mg/dl (0.2-1.3); Calcium 9.1 mg/dl (8.4-10.2); Carbon Dioxide 30 mmol/L (22.0-30.0); Globulin 2.3 g/dL (1.3-3.2); Glucose 86 mg/dl (74-100); Total Protein,Serum 6.6 g/dl (6.3-8.2)
[2022-09-27 19:32] LABS: C-Reactive Protein 2.3 mg/L (0-4)
[2022-09-27 20:26] LABS: Erythrocyte Sedimentation Rate 14 mm/hr (0-20)
[2022-10-01 22:08] LABS: Rocky Mtn Spotted Fever, IgM 0.36 index (0.00-0.89)
[2022-10-02 01:07] LABS: RMSF, IgG, EIA Negative (Negative)
[2022-10-06 12:14] LABS: Lyme B. burgdorferi PCR Blood Negative (Negative)
== END ==
LOC: LAB 19:59 → LAB.DROPOF 11-03 02:08
PROVIDERS: PCP Nurse Practitioner; Visit Provider Nurse Practitioner
DX: L08.9 Local infection of the skin and subcutaneous tissue, unspecified (principal); R59.0 Localized enlarged lymph nodes; S10.96XA Insect bite of unspecified part of neck, initial encounter; W57.XXXA Bitten or stung by nonvenomous insect and other nonvenomous arthropods, initial encounter
CPT/HCPCS: 80053; 85025; 85651; 86140; 86609; 87476

== ENCOUNTER → 2022-10-09 06:43 | Outpatient (CLI) | payer BC, SELFPAY | PROVIDERS: PCP Family Medicine; Visit Provider Family Medicine | DX: J02.9 Acute pharyngitis, unspecified (principal) ==

== ENCOUNTER → 2022-10-16 16:06 | Outpatient (CLI) | payer BC, SELFPAY ==
[2022-10-16 18:38] LABS: Basophils # 0.1 K/mm3 (0-0.2); Basophils % 1.1 % (0.1-2.0); Eosinophils # 0.3 K/mm3 (0.0-0.4); Eosinophils % 4.2 % (0.1-12.0); Hemoglobin 13.7 g/dL (12.2-16.2); Lymphocytes # 1.4 K/mm3 (0.7-4.5); Lymphocytes % 19.3 % (10-50); Mean Corpuscular HGB Conc 32.6 g/dL (31.8-35.4); Mean Corpuscular Hemoglobin 29.5 pg (27.0-31.2); Mean Corpuscular Volume 90.5 fl (81-99); Mean Platelet Volume 7.8 fl (7.4-10.4); Monocytes # 0.5 K/mm3 (0.1-1.0); Neutrophils # 4.9 K/mm3 (1.8-7.8); Neutrophils % 68.5 % (37.0-80.0); Platelet Count 372 K/mm3 (142-424); Red Blood Count 4.64 M/mm3 (4.20-5.40); Red Cell Distribution Width 12.2 % (11.5-17.5); White Blood Count 7.2 K/mm3 (4.8-10.8)
[2022-10-24 12:04] LABS: Lyme B. burgdorferi PCR Blood Negative (Negative)
== END ==
PROVIDERS: PCP Family Medicine; Visit Provider Family Medicine
DX: R59.0 Localized enlarged lymph nodes (principal)
CPT/HCPCS: 85025; 87070; 87077; 87186; 87205; 87476

== ENCOUNTER → 2022-10-23 14:37 | Outpatient (CLI) | payer BC, SELFPAY ==
--- NOTE | 2022-10-23 14:37 | MM_ITS ---
PROCEDURE INFORMATION: Exam: MG Bilateral Screening 3D Mammography Exam date and time: 10/23/2022 2:41 PM Age: 51 years old Clinical indication: Baseline. No family history of breast cancer. TECHNIQUE: Imaging protocol: Bilateral Screening tomosynthesis and 2D mammography including computer-aided detection (CAD) when performed. COMPARISON: No relevant prior studies available. FINDINGS: MAMMOGRAPHY: Breast composition: There are scattered areas of fibroglandular density. Mass: Oval 0.4 cm mass/circumscribed asymmetry in the right inner breast, middle 3rd, CC view only. Oval 0.7 cm mass in the left upper outer quadrant, middle to posterior 3rd. Several sub cm probable intramammary lymph nodes in the left upper outer quadrant posterior 3rd. Intramammary lymph node with a fatty hilum in the right upper outer quadrant. Architectural distortion: None. Calcifications: No suspicious calcifications. Asymmetric density: None. Skin thickening: None. Axillary adenopathy: None. IMPRESSION: Patient will be recalled for bilateral sonography with particular attention to the right inner breast, right upper outer quadrant, and left upper outer quadrant for further evaluation of bilateral breast masses. ASSESSMENT: BI-RADS Category 0: Incomplete- Need Additional Imaging Evaluation and/or Prior Mammograms for Comparison
--- NOTE | 2022-10-23 14:47 | US_ITS ---
FINAL REPORT CLINICAL HISTORY: right axillary lymphadenopathy COMPARISON: None FINDINGS: ULTRASOUND SOFT TISSUE LIMITED Sonographic images of the right axilla were obtained. There is a 1.2 cm hyperechoic focus in the right axilla of uncertain significance. No discrete fluid collection is identified. There is no dominant mass. IMPRESSION: 1.2 cm relatively hyperechoic focus right axilla of uncertain significance. Reviewed, Interpreted and Dictated by Felipe Butler MD Transcribed by Yoselyn Blanco Authenticated and [facility]
== END ==
PROVIDERS: PCP Family Medicine; Visit Provider Nurse Practitioner
DX: R59.0 Localized enlarged lymph nodes (principal); Z12.31 Encounter for screening mammogram for malignant neoplasm of breast
CPT/HCPCS: 76882; 77063; 77067

== ENCOUNTER → 2022-11-05 13:34 | Outpatient (CLI) | payer BC, SELFPAY ==
--- NOTE | 2022-11-05 13:35 | US_ITS ---
PROCEDURE INFORMATION: Exam: US Left Breast, Complete Exam date and time: 11/05/2022 2:11 PM Age: 51 years old Clinical indication: Patient recalled for further evaluation of left breast masses TECHNIQUE: Imaging protocol: Complete ultrasound of all four quadrants of the left breast and the retroareolar regions, including ultrasound of the axilla when performed. COMPARISON: MG MM DIG SCREENING MAMM BI W/CAD 10/23/2022 2:41 PM FINDINGS: Breast: Sonographic images of the left breast including the retroareolar region, all 4 quadrants and the axilla do not demonstrate any suspicious solid or cystic masses. 0.6 cm intramammary lymph node in the left upper outer quadrant corresponds to 1 of several subcentimeter masses seen on mammography. The additional masses on mammography in the upper outer quadrant are not seen on sonography but likely reflects an additional intramammary lymph node. No architectural distortion or acoustical shadowing. No skin thickening or axillary adenopathy. IMPRESSION: Probably benign intramammary lymph nodes in the left upper outer quadrant best seen on mammography. A six-month follow-up diagnostic left mammogram is recommended to ensure stability of the pattern identified ASSESSMENT: BI-RADS Category 3: Probably benign
--- NOTE | 2022-11-05 13:35 | US_ITS ---
PROCEDURE INFORMATION: Exam: US Right Breast, Complete Limited left breast ultrasound Exam date and time: 11/05/2022 1:58 PM Age: 51 years old Clinical indication: Patient recalled for further evaluation of bilateral breast masses TECHNIQUE: Imaging protocol: Complete ultrasound of all four quadrants of the right breast and the retroareolar regions, including ultrasound of the axilla when performed. COMPARISON: MG MM DIG SCREENING MAMM BI W/CAD 10/23/2022 2:41 PM FINDINGS: Breast: Sonographic images of the left upper outer quadrant demonstrate a fat containing benign-appearing 0.6 cm intramammary lymph node in the 2 o'clock axis 10 cm from the nipple. The additional subcentimeter masses scattered in the posterior left upper outer quadrant on mammography and not seen on sonography but are likely benign in etiology, reflecting additional intramammary lymph nodes. Sonographic images of the right breast including all 4 quadrants, the retroareolar region and axilla do not demonstrate any solid or cystic masses. No architectural distortion or acoustical shadowing. Other findings: The 0.4 cm asymmetry in the right inner breast is not seen on sonography. IMPRESSION: Probably benign bilateral breast masses best seen on mammography. A six-month follow-up diagnostic bilateral mammogram is recommended to ensure stability of the pattern identified ASSESSMENT: BI-RADS Category 3: Probably benign
== END ==
PROVIDERS: PCP Nurse Practitioner; Visit Provider Nurse Practitioner
DX: R92.8 Other abnormal and inconclusive findings on diagnostic imaging of breast (principal)
CPT/HCPCS: 76641

== ENCOUNTER 2023-01-24 16:23 | Emergency (ER) | payer BC, SELFPAY ==
[2023-01-24 17:30] VITALS: BP 129/64; PULSE 60; RESP 20; TEMP 36.8; O2SAT 97; BMI 28.5
--- NOTE | 2023-01-24 17:33 | EXP.UTC ---
Discharge Plan Disposition Patient Disposition: Home, Self-Care Condition: Good Prescriptions Prescriptions: New doxycycline monohydrate [doxycycline monohydrate] 100 mg tablet 100 mg PO Q12 10 Days Qty: 20 0RF mupirocin 2 % ointment 1 applic topical TID 7 Days Qty: 15 0RF No Action oxycodone-acetaminophen 5-325 mg tablet 1 tab PO Patient Comments: TAKE 1-2 TABLETS BY MOUTH EVERY 4 HOURS NEEDED FOR MAJOR SURGERY/TRAUMA polyethylene glycol 3350 17 gram/dose powder 17 g PO DAILY Qty: 850 2RF albuterol sulfate 90 mcg/actuation aerosol powdr breath activated 2 inh inhalation Q4-6H PRN (Reason: shortness of breath or wheezing) Qty: 1 0RF omeprazole 20 mg capsule,delayed release(DR/EC) 20 mg PO DAILY 30 Days Qty: 90 3RF fluticasone propionate [Allergy Relief (fluticasone)] 50 mcg/actuation spray,suspension 1 spray intranasal DAILY Qty: 16 2RF Rx Instructions: administer into each nostril Referrals Follow up/Referrals: Valorie Coello MD [Primary Care Provider] - See instructions Activity Restrictions/Add. Instructions Additional Instructions/Restrictions: Take the medications as directed. Follow up with your regular doctor. GO TO THE ER FOR ANY WORSENING SYMPTOMS Clinical Impressions Clinical Impression: Tick bite Instructions Patient Instructions: Doxycycline, Mupirocin, Protect Yourself from Tickborne Illnesses Discharge ED Provider[place] Elijah Farah [facility] [place] [facility] [place] General Stated complaint: tick bite Left hip,l side of neck Time Seen by Provider: 01/24/23 17:33 History of Present Illness Provider Complaint: She states that she found 2 ticks embedded on her. One was on the left side of her neck and one was on her left buttock. This occurred 3 days ago. Since then she has had redness at the sites. She denies any fever/chills/malaise. Related Data Home Medications Medication Instructions Recorded Confirmed oxycodone-acetaminophen 5 mg-325 1 tab PO 12/12/22 01/24/23 mg tablet Previous Rx's Medication Instructions Recorded albuterol sulfate 90 mcg/actuation 2 inh inhalation Q4-6H PRN 02/14/22 breath activated powder inhaler shortness of breath or wheezing #1 ea omeprazole 20 mg capsule,delayed 20 mg PO DAILY GERD 30 days #90 08/28/22 release caps polyethylene glycol 3350 17 17 g PO DAILY #850 grams 12/12/22 gram/dose oral powder fluticasone propionate 50 1 spray intranasal DAILY allergy 12/19/22 mcg/actuation nasal symptoms #16 grams spray,suspension (Allergy Relief (fluticasone)) doxycycline monohydrate 100 mg 100 mg PO Q12 10 days #20 tabs 01/24/23 tablet mupirocin 2 % topical ointment 1 applic topical TID 7 days #15 01/24/23 grams Allergies Allergy/AdvReac Type Severity Reaction Status Date / Time sulfamethoxazole Allergy Verified 01/24/23 17:50 [From Bactrim] trimethoprim [From Bactrim] Allergy Verified 01/24/23 17:50 [facility] Disclaimer: The information contained in this section may have been updated after the patient was seen, as this information can be updated by other users. Medical History Abnormal mammogram Acute bronchitis Allergic rhinitis Axillary lymphadenopathy Bilateral lower extremity edema Bowel habit changes Constipation COVID-19 Left chest pressure Localized bacterial skin infection Lymphadenopathy of left cervical region Tick bite Surgical History History of hernia repair S/P hysterectomy Family History Other Cancer Social History Smoking Status: Never smoker second hand exposure: No alcohol intake: never substance use type: denies use current occupational status: employed Travel in the last 8 weeks: None household members: spouse housing: house c
[2023-01-24 18:18] VITALS: BP 129/64; PULSE 60; RESP 20; TEMP 36.8; O2SAT 97
== END 2023-01-24 18:20 | disposition home or self-care (01) ==
PROVIDERS: Emergency Provider Nurse Practitioner Family; PCP Family Medicine
DX: S10.96XA Insect bite of unspecified part of neck, initial encounter (principal); S30.860A Insect bite (nonvenomous) of lower back and pelvis, initial encounter; W57.XXXA Bitten or stung by nonvenomous insect and other nonvenomous arthropods, initial encounter; J30.9 Allergic rhinitis, unspecified
CPT/HCPCS: 99204; 99212; G0463

== ENCOUNTER 2023-04-24 08:59 | Day surgery (SDC) | payer BC, SELFPAY ==
[2023-04-19 10:59] VITALS: BMI 27.4
[2023-04-24] VITALS (8 sets, daily range): BP systolic 108–129; BP diastolic 47–78; PULSE 63–85; RESP 15–18; TEMP 36.1–36.7; O2SAT 94–100
--- NOTE | 2023-04-24 10:43 | P.PNANES_ITS ---
[facility] Disclaimer: The information contained in this section may have been updated after the patient was seen, as this information can be updated by other users. Medical History Abnormal mammogram Acute bronchitis Allergic rhinitis Axillary lymphadenopathy Bilateral lower extremity edema Bowel habit changes Constipation COVID-19 Left chest pressure Localized bacterial skin infection Lymphadenopathy of left cervical region Tick bite Surgical History History of hernia repair S/P hysterectomy Family History Other Cancer Social History Smoking Status: Never smoker second hand exposure: No alcohol intake: never substance use type: denies use current occupational status: employed Travel in the last 8 weeks: None household members: spouse housing: house current occupation: [employer] current occupational exposures/hazards: No [facility] Anesthesia Checklist Patient Identification Patient Identification: Arm Band and Verbal (Name & ) Structural Data Admitted From: Home Planned Operative Procedure/s: Colonoscopy Consent for Planned Operative Procedure(s) Verified: Yes NPO Status Verified Time NPO: 00:00 Additional verifications Anesthesia Reactions: No Hx Blood Transfusions: No Blood Transfusion Reaction: No Airway Assessment Mallampati Score:: Class II C-Spine Mobility Assessed: Yes TMJ Mobility Assessed: Yes Dentition: Good Dentition Neurological Assessment Level of Consciousness: Awake Hx Seizures: No Numbness or tingling in extremities: No Anesthesia Plan Anesthesia Risk discussed: Yes Anesthesia Plan: Verified ASA Class: I Anesthesia Type: MAC
--- NOTE | 2023-04-24 11:12 | HMH.SCOPE ---
Procedure: Date: 04/24/23 Patient Date of :: 1970 Procedure Performed:: Colonoscopy Indications:: The patient is a 52 year old who presents for screening colonoscopy Performing Provider:: Zaki Iyer MD Referring Provider:: Graciela Cullen APRN Sedation:: See RN records Procedure:: After placing the patient in the left lateral decubitus position, the colonoscopy was gently inserted into the rectum and under direct visualization advanced to the cecum which was identified by transillumination in the right lower quadrant, identification of the ileocecal valve, appendiceal orifice, and cecal strap. Color, texture, mucosa, and anatomy of the colon were carefully examined with the scope. Findings:: Anal canal: normal Rectum: normal Sigmoid colon: Diverticulosis Descending colon: Sessile polyp less than 5 mm in size. Removed with cold forceps Splenic flexure: normal Transverse colon: normal without polyps or inflammatory changes Hepatic flexure: normal Ascending colon: normal without polyps or inflammatory changes Cecum: normal Terminal ileum: not visualized Impression: Diverticulosis Polp of descending colon Recommendations:: Await pathology results Higher fiber diet Repeat colonoscopy in 5-10 years (5 years if polyp is adenoma) Complications:: None Estimated blood obtained (mL): 0 Colonoscopy Component Colonoscopy Component Was a colonoscopy performed during today's procedure?: Yes Recommended follow up colonoscopy of at least 10 years?: Yes
== END 2023-04-24 12:00 | disposition home or self-care (01) ==
PROVIDERS: PCP Nurse Practitioner; Visit Provider Internal Medicine
PROC: (CPT 45380; principal; 2023-04-24 10:30)
DX: Z12.11 Encounter for screening for malignant neoplasm of colon (principal); K57.30 Diverticulosis of large intestine without perforation or abscess without bleeding
CPT/HCPCS: 45380

== ENCOUNTER 2023-04-29 23:04 | Emergency (ER) | payer BC, SELFPAY ==
--- NOTE | 2023-04-26 23:05 | ECG_ITS ---
APPROVED REPORT Exam: Resting ECG HR:61 bpm ECG Measurements Heart Rate 61 AXES WA 190 P 75 QRSd 94 QRS 29 QT 381 T 60 QTc 385 Conclusion SINUS RHYTHM LOW QRS VOLTAGE IN PRECORDIAL LEADS [QRS DEFLECTION < 1.0 mV IN CHEST LEADS] BORDERLINE ECG UNCONFIRMED REPORT Electronically signed by : Denny Sánchez MD 04/30/2023 10:17:49
[2023-04-29 23:04] VITALS: BP 152/90; PULSE 66; RESP 16; TEMP 36.6; O2SAT 99; BMI 27.4
[2023-04-29 23:19] LABS: Basophils # 0.1 K/mm3 (0-0.2); Basophils % 0.8 % (0.1-2.0); Eosinophils # 0.3 K/mm3 (0.0-0.4); Hematocrit 42.9 % (37.0-47.0); Hemoglobin 14.2 g/dL (12.2-16.2); Lymphocytes # 2.9 K/mm3 (0.7-4.5); Lymphocytes % 34.1 % (10-50); Mean Corpuscular Hemoglobin 29.5 pg (27.0-31.2); Mean Corpuscular Volume 89.4 fl (81-99); Mean Platelet Volume 7.7 fl (7.4-10.4); Monocytes # 0.5 K/mm3 (0.1-1.0); Monocytes % 6.4 % (1.7-9.3); Neutrophils # 4.7 K/mm3 (1.8-7.8); Neutrophils % 55.6 % (37.0-80.0); Platelet Count 352 K/mm3 (142-424); Red Cell Distribution Width 12.9 % (11.5-17.5); White Blood Count 8.4 K/mm3 (4.8-10.8)
[2023-04-29 23:22] VITALS: PULSE 66
[2023-04-29 23:25] LABS: Chloride 102 mmol/L (98-107)
[2023-04-29 23:26] LABS: Potassium 3.7 mmoL/L (3.5-5.1); Sodium 139 mmol/L (136-145)
[2023-04-29 23:28] LABS: Alanine Aminotransferase 26 U/L (12-78); Albumin Level 4.3 g/dl (3.5-5.0); Albumin/Globulin Ratio 1.5 (1.1-1.8); Alkaline Phosphatase 64 U/L (38-126); Anion Gap 8.7 mEq/L (5-15); Aspartate Amino Transferase 27 U/L (14-36); Bilirubin,Total 0.4 mg/dl (0.2-1.3); Blood Urea Nitrogen 14 mg/dl (7-17); Calcium 9.1 mg/dl (8.4-10.2); Carbon Dioxide 32 mmol/L (22.0-30.0); Creatinine Clearance Estimated 90 mL/min (50-200); Estimated Glomerular Filt Rate 76 ml/min (>60); GFR (African American) 92 ML/MIN (>60); Globulin 2.8 g/dL (1.3-3.2); Glucose 95 mg/dl (74-100); Lipase 51 U/L (23-300); Total Protein,Serum 7.1 g/dl (6.3-8.2)
[2023-04-29 23:30] VITALS: BP 119/80; RESP 15; O2SAT 97
[2023-04-29 23:46] LABS: Troponin I < 0.01 ng/ml (0.00-0.034)
--- NOTE | 2023-04-29 23:58 | HMH.EDGENADL ---
Discharge Plan Disposition Patient Disposition: Home, Self-Care Condition: Good Prescriptions Prescriptions: No Action No Known Home Medications Referrals Follow up/Referrals: China Pitt APRN [Primary Care Provider] - See instructions Clinical Impressions Clinical Impression: Chest pain Instructions Patient Instructions: DI for Atypical Chest Pain Discharge ED Provider: Monalisa Santamaria General Adult HPI General Chief complaint: Chest Pain Stated complaint: CP Time Seen by Provider: 04/29/23 23:07 Mode of Arrival: Ambulatory Source of Information: Patient Limitations: No Limitations Description of Symptoms (Recalled from ER Triage Doc. by RN): pt reports on and off chest pain since gi, cp first started on right side, now in middle of chest thru to back, denies SOA, N/V, reports stopped taking antacid. reports taking ASA 81mg and Tums APPLICATION ADMINISTRATOR. History of Present Illness HPI narrative: Patient has a PMHx significant for GERD gastritis who presents to the ED with complaints of chest pain. pt reports on and off chest pain since . Patient notes that tonight, her cp first started on right side, now in middle of chest through to back. Denies SOA, N/V, reports stopped taking antacid. reports taking ASA 81mg and Tums APPLICATION ADMINISTRATOR. Patient denies any cardiac history, was not exertional onset, no diaphoresis or nausea. Related Data Home Medications Medication Instructions Recorded Confirmed No Known Home Medications 04/24/23 04/24/23 Allergies Allergy/AdvReac Type Severity Reaction Status Date / Time sulfamethoxazole Allergy Verified 04/24/23 10:05 [From Bactrim] trimethoprim [From Bactrim] Allergy Verified 04/24/23 10:05 [facility] Disclaimer: The information contained in this section may have been updated after the patient was seen, as this information can be updated by other users. Medical History Abnormal mammogram Acute bronchitis Allergic rhinitis Axillary lymphadenopathy Bilateral lower extremity edema Bowel habit changes Constipation COVID-19 Left chest pressure Localized bacterial skin infection Lymphadenopathy of left cervical region Tick bite Surgical History History of hernia repair S/P hysterectomy Family History Other Cancer Social History Smoking Status: Never smoker second hand exposure: No alcohol intake: never substance use type: denies use current occupational status: employed Travel in the last 8 weeks: None household members: spouse housing: house current occupation: [employer] current occupational exposures/hazards: No ROS Obtained: Yes All systems reviewed & no additional complaints except as documented Physical Exam General General appearance: alert and in no apparent distress Head Head exam: atraumatic, normocephalic and normal inspection Eye Eye exam: Present normal appearance, PERRL and EOMI; Absent scleral icterus or nystagmus ENT ENT exam: Present normal exam, mucous membranes moist and normal external ear exam Neck Neck exam: Present normal inspection, full ROM and trachea midline Chest Chest inspection: Present normal inspection and symmetric chest wall rise; Absent tenderness Respiratory Respiratory exam: Present normal lung sounds bilaterally; Absent respiratory distress, wheezes or accessory muscle use Cardiovascular Cardiovascular exam: Present regular rate, normal rhythm and normal heart sounds Abdominal Exam Abdominal exam: Present soft; Absent distention, tenderness, guarding, rebound, rigidity, trauma, ascites or pulsatile mass Extremities Exam Extremities exam: Present normal inspection and full ROM; Absent tenderness Back Exam Back exam: Present normal inspection and full RO
[2023-04-30] VITALS: BP 124/81; PULSE 63; RESP 18; O2SAT 95
--- NOTE | 2023-04-30 | XR_ITS ---
PROCEDURE INFORMATION: Exam: XR Chest Exam date and time: 04/30/2023 12:00 AM Age: 52 years old Clinical indication: Sternal or substernal pain; Additional info: Cp TECHNIQUE: Imaging protocol: Radiologic exam of the chest. Views: 1 view. COMPARISON: No relevant prior studies available. FINDINGS: Lungs: Clear, symmetrically inflated lungs. Pleural spaces: No pleural effusion. No pneumothorax. Heart/Mediastinum: Cardiac silhouette is normal in size for technique. Bones/joints: Age appropriate. IMPRESSION: No acute cardiopulmonary abnormality.
[2023-04-30 00:30] VITALS: BP 120/79; PULSE 66; O2SAT 97
[2023-04-30 01:00] VITALS: BP 109/76; PULSE 57; O2SAT 96
--- NOTE | 2023-04-30 01:11 | PC.NURSE ---
pt resting in bed, awaiting second trop, ELSY, WCTM
[2023-04-30 01:36] LABS: Troponin I < 0.01 ng/ml (0.00-0.034)
[2023-04-30 01:44] VITALS: BP 119/82; PULSE 61; RESP 16; TEMP 36.8; O2SAT 97
== END 2023-04-30 01:45 | disposition home or self-care (01) ==
PROVIDERS: Emergency Medicine; Emergency Provider Student in an Organized Health Care Education/Training Program; PCP Nurse Practitioner
DX: R07.9 Chest pain, unspecified (principal)
CPT/HCPCS: 71045; 80053; 83690; 84484; 85025; 93005; 99285

== ENCOUNTER → 2023-04-30 14:29 | Outpatient (CLI) | payer BC, SELFPAY ==
--- NOTE | 2023-04-30 14:30 | MM_ITS ---
PROCEDURE INFORMATION: Exam: MG Bilateral Diagnostic Breast Tomosynthesis Exam date and time: 04/30/2023 2:25 PM Age: 52 years old Clinical indication: Short-term radiographic followup; Bilateral breasts; masses TECHNIQUE: Imaging protocol: Bilateral Diagnostic tomosynthesis and 2D mammography including computer-aided detection (CAD) when performed. Unilateral or bilateral exam. COMPARISON: 1. MG MM DIG SCREENING MAMM BI W/CAD 10/23/2022 2:41 PM 2. US BREAST LT COMPLETE 11/05/2022 2:11 PM FINDINGS: MAMMOGRAPHY: The breasts are heterogeneously dense, which may obscure small masses. There is no stellate mass, architectural distortion or suspicious microcalcifications in either breast to suggest malignancy. Stable subcentimeter nodular pattern in both upper breasts. These likely reflect benign intramammary lymph nodes. No skin thickening or axillary adenopathy. IMPRESSION: Stable mammographic pattern compared to prior mammogram dated 10/23/2022. A six-month follow-up diagnostic bilateral mammogram is recommended for continued close surveillance ASSESSMENT: BI-RADS Category 3: Probably benign
== END ==
PROVIDERS: PCP Nurse Practitioner; Visit Provider Nurse Practitioner
DX: R92.8 Other abnormal and inconclusive findings on diagnostic imaging of breast (principal)
CPT/HCPCS: 77062; 77066; G0279

== ENCOUNTER 2023-06-28 22:56 | Outpatient (CLI) | payer BC, SELFPAY | END 2023-06-28 23:59 | LOC: LAB.DROPOF 22:56 | PROVIDERS: PCP Family Medicine; Visit Provider Family Medicine | DX: R10.9 Unspecified abdominal pain (principal); R23.2 Flushing | CPT/HCPCS: 82670; 83001 ==

== ENCOUNTER 2023-07-03 06:30 | Outpatient (CLI) | payer BC, SELFPAY ==
--- NOTE | 2023-07-03 06:39 | US_ITS ---
FINAL REPORT CLINICAL HISTORY: Dyspepsia FINDINGS: RIGHT UPPER QUADRANT ULTRASOUND Sonographic images of the right upper quadrant were obtained. The pancreas is partially obscured.The liver has an unremarkable appearance.The gallbladder appears normal without evidence of gallstones.The common duct measures 3 mm. Limited images of the right kidney are normal. IMPRESSION: No acute process. Reviewed, Interpreted and Dictated by Jayden Spears III, MD Transcribed by Roselia Reynaga Authenticated and [facility]
== END 2023-07-03 23:59 ==
LOC: RAD 06:32
PROVIDERS: PCP Family Medicine; Visit Provider Family Medicine
DX: R10.11 Right upper quadrant pain (principal)
CPT/HCPCS: 76705

== ENCOUNTER 2023-10-18 13:16 | Outpatient (CLI) | payer BC, SELFPAY ==
--- NOTE | 2023-10-18 13:17 | MM_ITS ---
PROCEDURE INFORMATION: Exam: MG Bilateral Diagnostic Breast Tomosynthesis Exam date and time: 10/18/2023 1:26 PM Age: 52 years old Clinical indication: Continued six-month follow-up for sub cm nodular pattern bilaterally, initiated 10/23/2022. TECHNIQUE: Imaging protocol: Bilateral Diagnostic tomosynthesis and 2D mammography including computer-aided detection (CAD) when performed. Unilateral or bilateral exam. COMPARISON: 1. MG MM DIG MAMM BI DX W/CAD 04/30/2023 2:25 PM 2. MG MM DIG SCREENING MAMM BI W/CAD 10/23/2022 2:41 PM 3. US BREAST LT COMPLETE 11/05/2022 2:11 PM 4. US BREAST RT COMPLETE 11/05/2022 1:58 PM FINDINGS: MAMMOGRAPHY: Breast mammogram findings: Breast composition: There are scattered areas of fibroglandular density. Mass: No significant change in scattered bilateral nodule since 10/23/2022. Architectural distortion: None. Calcifications: No suspicious calcifications. Asymmetric density: None. Skin thickening: None. Axillary adenopathy: None. IMPRESSION: Stable bilateral scattered nodule since 10/23/2022, continued six-month follow-up bilateral diagnostic mammography is recommended unless otherwise clinically indicated. ASSESSMENT: BI-RADS Category 3: Probably benign.
== END 2023-10-18 23:59 | disposition home or self-care (01) ==
LOC: RAD 13:17
PROVIDERS: PCP Nurse Practitioner; Visit Provider Nurse Practitioner
DX: R92.8 Other abnormal and inconclusive findings on diagnostic imaging of breast (principal)
CPT/HCPCS: 77062; 77066; G0279

== ENCOUNTER → 2023-11-08 08:46 | Outpatient (CLI) | payer BC, SELFPAY | LOC: SL 08:46 | PROVIDERS: PCP Nurse Practitioner; Visit Provider Nurse Practitioner Family | DX: G47.33 Obstructive sleep apnea (adult) (pediatric) (principal); G47.36 Sleep related hypoventilation in conditions classified elsewhere; R06.83 Snoring | CPT/HCPCS: G0399 ==

== ENCOUNTER 2023-11-22 10:36 | Outpatient (CLI) | payer BC, SELFPAY ==
[2023-11-22 18:39] LABS: Basophils # 0.1 K/mm3 (0-0.2); Eosinophils # 0.1 K/mm3 (0.0-0.4); Eosinophils % 2.1 % (0.1-12.0); Hematocrit 46.4 % (37.0-47.0); Hemoglobin 14.6 g/dL (12.2-16.2); Lymphocytes % 29.4 % (10-50); Mean Corpuscular HGB Conc 31.4 g/dL (31.8-35.4); Mean Corpuscular Hemoglobin 29.3 pg (27.0-31.2); Mean Corpuscular Volume 93.2 fl (81-99); Mean Platelet Volume 8.7 fl (7.4-10.4); Monocytes # 0.5 K/mm3 (0.1-1.0); Monocytes % 6.7 % (1.7-9.3); Neutrophils % 60.7 % (37.0-80.0); Platelet Count 327 K/mm3 (142-424); Red Blood Count 4.98 M/mm3 (4.20-5.40); Red Cell Distribution Width 13.1 % (11.5-17.5); White Blood Count 6.7 K/mm3 (4.8-10.8)
[2023-11-22 19:35] LABS: Alanine Aminotransferase 23 U/L (12-78); Albumin Level 4.2 g/dl (3.5-5.0); Albumin/Globulin Ratio 1.7 (1.1-1.8); Alkaline Phosphatase 60 U/L (38-126); Anion Gap 13.1 mEq/L (5-15); Aspartate Amino Transferase 26 U/L (14-36); Bilirubin,Total 0.4 mg/dl (0.2-1.3); Blood Urea Nitrogen 19 mg/dl (7-17); Calcium 9.7 mg/dl (8.4-10.2); Carbon Dioxide 30 mmol/L (22.0-30.0); Chloride 101 mmol/L (98-107); Chol/HDL Ratio 5.4 (1-3.5); Cholesterol 253 mg/dl (140-200); Estimated Glomerular Filt Rate 89 ml/min (>60); GFR (African American) 107 ML/MIN (>60); Globulin 2.5 g/dL (1.3-3.2); Glucose 98 mg/dl (74-100); HDL Cholesterol 47 mg/dl (40-60); Potassium 4.1 mmoL/L (3.5-5.1); Sodium 140 mmol/L (136-145); Total Protein,Serum 6.7 g/dl (6.3-8.2); Triglycerides 174 mg/dl (30-150); VLDL Cholesterol 35 mg/dL (0-40)
[2023-11-22 19:44] LABS: 25-OH Vitamin D, Total 42.4 ng/mL (30-100)
[2023-11-22 19:46] LABS: Direct LDL Cholesterol 157.04 mg/dL (100-129)
[2023-11-22 20:20] LABS: Hemoglobin A1C 5.5 % (4.0-6.0)
== END 2023-11-22 23:59 | disposition home or self-care (01) ==
LOC: LAB.DROPOF 11-25 10:36
PROVIDERS: PCP Nurse Practitioner Family; Visit Provider Nurse Practitioner Family
DX: Z78.0 Asymptomatic menopausal state (principal); Z68.29 Body mass index [BMI] 29.0-29.9, adult
CPT/HCPCS: 80050; 80053; 80061; 82306; 83036; 84443; 85025

== ENCOUNTER 2023-11-30 16:45 | Emergency (ER) | payer BC, SELFPAY ==
[2023-11-30 16:47] VITALS: BP 156/98; PULSE 85; RESP 18; TEMP 36.7; O2SAT 99; BMI 28.7
--- NOTE | 2023-11-30 17:01 | ED_ITS ---
Discharge Plan Disposition Patient Disposition: Home, Self-Care Prescriptions Prescriptions: New prednisone 50 mg tablet 50 mg PO DAILY 5 Days Qty: 5 0RF No Action estradiol 0.05 mg/24 hr patch weekly 1 patch transdermal WEEKLY 30 Days Qty: 4 2RF estradiol 0.01 % (0.1 mg/gram) cream 1 appful vaginal DAILY 30 Days Qty: 42.5 4RF Rx Instructions: Please dispose of the applicator and apply a blueberry size amount every night for 2 weeks and then twice weekly for maintenance Referrals Follow up/Referrals: Keven Tejada APRN [Primary Care Provider] - See instructions Activity Restrictions/Add. Instructions Additional Instructions/Restrictions: At this time it was felt you are safe to be discharged home. If new or worsening symptoms please do not hesitate to return the emergency department. For pain please take Tylenol and ibuprofen every 6 hours as needed, it is okay to take them at the same time. Take 50 mg of Benadryl every 6 hours as needed for swelling and take your steroids as prescribed. Clinical Impressions Clinical Impression: Bee sting, Allergic reaction Instructions Patient Instructions: DI for Skin Abscess Discharge ED Provider: Ross Campbell General Adult HPI General Chief complaint: Skin/Abscess/Foreign Body Stated complaint: Wasp sting above right eye Time Seen by Provider: 11/30/23 16:49 Mode of Arrival: Ambulatory Source of Information: Patient and Spouse Limitations: No Limitations Description of Symptoms (Recalled from ER Triage Doc. by RN): bee sting above r eye History of Present Illness HPI narrative: Patient is a 53-year-old female past medical history of bee allergy who presents emergency department for a bee sting. Onset was acute, approximately 4 PM. Above her right eyebrow. She has had progressive erythema and swelling causing her to present here for continued evaluation. No shortness of breath, no rash, no other acute complaints. Related Data Previous Rx's Medication Instructions Recorded estradiol 0.01% (0.1 mg/gram) 1 appful vaginal DAILY 30 days 11/27/23 vaginal cream #42.5 grams estradiol 0.05 mg/24 hr weekly 1 patch transdermal WEEKLY 30 days 11/27/23 transdermal patch #4 ea prednisone 50 mg tablet 50 mg PO DAILY allergic reaction 5 11/30/23 days #5 tabs Allergies Allergy/AdvReac Type Severity Reaction Status Date / Time sulfamethoxazole Allergy Verified 11/27/23 14:31 [From Bactrim] trimethoprim [From Bactrim] Allergy Verified 11/27/23 14:31 [facility] Disclaimer: The information contained in this section may have been updated after the antonia townsend was seen, as this information can be updated by other users. Medical History Postmenopausal Bowel habit changes Allergic rhinitis Constipation Abnormal mammogram Localized bacterial skin infection Axillary lymphadenopathy Lymphadenopathy of left cervical region Tick bite Left chest pressure Bilateral lower extremity edema Acute bronchitis COVID-19 Surgical History History of hernia repair S/P hysterectomy Family History Other Cancer Social History Smoking Status: Never smoker second hand exposure: No alcohol intake: never substance use type: denies use current occupational status: employed Travel in the last 8 weeks: None household members: spouse housing: house current occupation: [employer] current occupational exposures/hazards: No ROS Obtained: Yes Systems reviewed as appropriate & no additional complaints except as documented Physical Exam General General appearance: alert and in no apparent distress Head Head exam: atraumatic, normocephalic and other (Right-sided periorbital redness and edema, no exophthalmos) Eye Eye exam: Present PERRL and EOMI ENT ENT exam: Present mucous membranes moist Neck Neck exam: Present normal inspection Chest Chest inspection: Present normal inspection and symmetric chest wall rise Respiratory Respiratory exam: Present normal lung sounds bilaterally; Absent respiratory distress or wheezes Cardiovascular Cardiovascular exam: Present regular rate and normal rhythm Abdominal Exam Abdominal exam: Present soft Extremities Exam Extremities exam: Present normal inspection Neurological Exam Neurological exam: Present alert Psychiatric Psychiatric exam: Present normal affect Skin Skin exam: Present warm and dry; Absent rash Medical Decision Making Wade Inquiry Pt receiving controlled substance: No Vital Signs: 11/30/23 16:47 Temperature 98.1 F Temperature Source Oral Pulse Rate [Right] 85 Respiratory Rate 18 Blood Pressure [Right Arm] 156/98 H Blood Pressure Mean [Right Arm] 117 02 Sat by Pulse Oximetry 99 Oxygen Delivery Method Room Air Orders (Tests/Meds): ED MEDICATIONS Discontinued Medications Generic Name Dose Route Start Last Admin Trade Name Freq PRN Reason Stop Dose Admin Diphenhydramine HCl 50 mg 11/30/23 16:53 11/30/23 17:02 Diphenhydramine 50mg Capsule PO 11/30/23 16:54 50 mg ONCE ONE Administration Famotidine 20 mg 11/30/23 16:53 11/30/23 17:02 Famotidine 20mg Tablet PO 11/30/23 16:54 20 mg ONCE ONE Administration Prednisone 40 mg 11/30/23 16:53 11/30/23 17:02 Prednisone 20mg Tab PO 11/30/23 16:54 40 mg ONCE ONE Administration Medical Decision Narrative: In summary patient is a 53-year-old female with past medical history described above who presents emergency department for evaluation of bee sting. Patient is hemodynamically stable nontoxic-appearing upon arrival, afebrile. Patient's history and physical exam consistent with allergic reaction, no criteria for anaphylaxis met. Fortunately sting occurred and patient's periorbital area and not her eye. Patient will be given steroids, Benadryl, famotidine and will undergo brief period of observation. The patient was placed in observation status at 5 PM. Medical necessity for observational status is monitoring for progression of reaction. The patient was provided serial reevaluations and cardiac monitoring while awaiting results. Patient had slight progression of her periorbital swelling which would be expected however no rash, no wheezing. Given this patient is appropriate for discharge at this time and has an EpiPen at home and was instructed how to use it if symptoms progress involving anaphylaxis now or in the future. Patient was given return precautions. Total time in observation 15 minutes. Critical Care Critical Care Time Critical Care Time: No
[2023-11-30] MEDS: diphenhydrAMINE 50MG CAPSULE 50 MG PO (17:02)
[2023-11-30] MEDS: FAMOTIDINE 20MG TABLET 20 MG PO (17:02)
[2023-11-30] MEDS: predniSONE 20MG TAB 40 MG PO (17:02)
[2023-11-30 17:33] VITALS: BP 137/90; PULSE 80; RESP 16; TEMP 36.7; O2SAT 97
== END 2023-11-30 17:34 | disposition home or self-care (01) ==
PROVIDERS: Emergency Provider Emergency Medicine; PCP Nurse Practitioner Family
DX: T63.441A Toxic effect of venom of bees, accidental (unintentional), initial encounter (principal); Z91.030 Bee allergy status
CPT/HCPCS: 99283

== ENCOUNTER 2024-03-11 16:35 | Outpatient (CLI) | payer BC, SELFPAY ==
[2024-03-11 18:33] LABS: Ferritin 163 ng/ml (11.1-264)
== END 2024-03-11 23:59 | disposition home or self-care (01) ==
LOC: LAB 16:36
PROVIDERS: PCP Nurse Practitioner; Visit Provider Specialist
DX: E83.10 Disorder of iron metabolism, unspecified (principal); G25.81 Restless legs syndrome; G47.34 Idiopathic sleep related nonobstructive alveolar hypoventilation
CPT/HCPCS: 82728; 94762

== ENCOUNTER 2024-04-15 15:16 | Outpatient (CLI) | payer BC, SELFPAY ==
--- NOTE | 2024-04-15 15:17 | MM_ITS ---
PROCEDURE INFORMATION: Exam: MG Bilateral Diagnostic Breast Tomosynthesis Exam date and time: 04/15/2024 3:15 PM Age: 53 years old Clinical indication: Continued six-month follow-up bilateral mammography for probable benign mammographic masses in the right upper inner quadrant middle 3rd CC view and left upper-inner quadrant middle to posterior 3rd, initiated 10/23/2022. TECHNIQUE: Imaging protocol: Bilateral Diagnostic tomosynthesis and 2D mammography including computer-aided detection (CAD) when performed. Unilateral or bilateral exam. COMPARISON: 1. MG MM DIG MAMM BI DX W/CAD 10/18/2023 1:26 PM 2. MG MM DIG MAMM BI DX W/CAD 04/30/2023 2:25 PM 3. MG MM DIG SCREENING MAMM BI W/CAD 10/23/2022 2:41 PM 4. US BREAST LT COMPLETE 11/05/2022 2:11 PM FINDINGS: Breast mammogram findings: Breast composition: There are scattered areas of fibroglandular density. Mass: No significant change in subcentimeter masses in the right upper inner and left upper inner quadrants. Architectural distortion: None. Calcifications: No suspicious calcifications. Asymmetric density: None. Skin thickening: None. Axillary adenopathy: None. IMPRESSION: Stable probably benign mammographic masses, initiated 10/23/2022. Continued six-month follow-up bilateral mammography is recommended unless otherwise clinically indicated. ASSESSMENT: BI-RADS Category 3: Probably benign.
== END 2024-04-15 23:59 | disposition home or self-care (01) ==
LOC: RAD 15:17
PROVIDERS: PCP Nurse Practitioner; Visit Provider Nurse Practitioner
DX: R92.8 Other abnormal and inconclusive findings on diagnostic imaging of breast (principal)
CPT/HCPCS: 77062; 77066; G0279

== ENCOUNTER 2024-06-19 07:01 | Outpatient (CLI) | payer BC, SELFPAY ==
[2024-06-19 18:20] LABS: Basophils # 0.1 K/mm3 (0-0.2); Basophils % 1.1 % (0.1-2.0); Eosinophils # 0.2 K/mm3 (0.0-0.4); Eosinophils % 2.1 % (0.1-12.0); Hematocrit 39.5 % (37.0-47.0); Hemoglobin 12.9 g/dL (12.2-16.2); Lymphocytes # 2.3 K/mm3 (0.7-4.5); Lymphocytes % 31.5 % (10-50); Mean Corpuscular HGB Conc 32.7 g/dL (31.8-35.4); Mean Corpuscular Hemoglobin 28.9 pg (27.0-31.2); Mean Corpuscular Volume 88.4 fl (81-99); Mean Platelet Volume 9.5 fl (7.4-10.4); Monocytes # 0.6 K/mm3 (0.1-1.0); Monocytes % 8.2 % (1.7-9.3); Neutrophils # 4.1 K/mm3 (1.8-7.8); Neutrophils % 56.7 % (37.0-80.0); Platelet Count 318 K/mm3 (142-424); Red Blood Count 4.47 M/mm3 (4.20-5.40); Red Cell Distribution Width 11.9 % (11.5-17.5); White Blood Count 7.2 K/mm3 (4.8-10.8)
[2024-06-19 18:40] LABS: Alanine Aminotransferase 21 U/L (12-78); Albumin Level 4.3 g/dl (3.5-5.0); Alkaline Phosphatase 59 U/L (38-126); Aspartate Amino Transferase 25 U/L (14-36); Bilirubin,Total 0.2 mg/dl (0.2-1.3); Blood Urea Nitrogen 19 mg/dl (7-17); Calcium 9.3 mg/dl (8.4-10.2); Carbon Dioxide 26 mmol/L (22.0-30.0); Chloride 104 mmol/L (98-107); Chol/HDL Ratio 3.3 (1-3.5); Cholesterol 197 mg/dl (140-200); Estimated Glomerular Filt Rate 88 ml/min (>60); GFR (African American) 107 ML/MIN (>60); Globulin 2.1 g/dL (1.3-3.2); Glucose 83 mg/dl (74-100); HDL Cholesterol 60 mg/dl (40-60); Sodium 136 mmol/L (136-145); Total Protein,Serum 6.4 g/dl (6.3-8.2); Triglycerides 81 mg/dl (30-150); VLDL Cholesterol 16 mg/dL (0-40)
[2024-06-19 18:51] LABS: Direct LDL Cholesterol 120.83 mg/dL (100-129)
[2024-06-19 18:57] LABS: T4 (Thyroxine) 8.8 ug/dl (5.53-11.0)
[2024-06-19 19:11] LABS: Thyroid Stimulating Hormone 1.43 uIU/mL (0.465-4.68)
== END 2024-06-19 23:59 | disposition home or self-care (01) ==
LOC: LAB.DROPOF 06-20 07:01
PROVIDERS: PCP Nurse Practitioner Family; Visit Provider Nurse Practitioner Family
DX: Z00.00 Encounter for general adult medical examination without abnormal findings (principal)
CPT/HCPCS: 80053; 80061; 82306; 84436; 84443; 85025

== ENCOUNTER 2024-10-14 15:30 | Outpatient (CLI) | payer BC, SELFPAY ==
--- NOTE | 2024-10-14 15:40 | MM_ITS ---
PROCEDURE INFORMATION: Exam: MG Bilateral Diagnostic Breast Tomosynthesis MG Bilateral Diagnostic Mammography Exam date and time: 10/14/2024 3:44 PM Age: 53 years old Clinical indication: Short-term radiographic followup; Bilateral breasts; nodularity in both upper inner quadrants TECHNIQUE: Imaging protocol: Bilateral Diagnostic tomosynthesis and 2D mammography including computer-aided detection (CAD) when performed. Unilateral or bilateral exam. Diagnostic mammography of the bilateral breasts including computer-aided detection (CAD) when performed. Bilateral exam. COMPARISON: 1. MG MM DIG MAMM BI DX W/CAD 04/15/2024 3:15 PM 2. MG MM DIG MAMM BI DX W/CAD 10/18/2023 1:26 PM COMPARISON MORE: MG MM DIG SCREENING MAMM BI W/CAD 10/23/2022 2:41 PM FINDINGS: MAMMOGRAPHY: Breast composition: There are scattered areas of fibroglandular density. Breast mammogram findings: There is no stellate mass, architectural distortion or suspicious microcalcifications in either breast to suggest malignancy. No skin thickening or axillary adenopathy. There is no significant interval change in parenchymal pattern. The pattern is considered benign IMPRESSION: No mammographic evidence of malignancy. Annual bilateral mammographic screening is recommended unless otherwise clinically indicated. ASSESSMENT: BI-RADS Category 1: Negative.
== END 2024-10-14 23:59 | disposition home or self-care (01) ==
LOC: RAD 15:31
PROVIDERS: PCP Nurse Practitioner Family; Visit Provider Nurse Practitioner
DX: R92.333 Mammographic heterogeneous density, bilateral breasts (principal); R92.8 Other abnormal and inconclusive findings on diagnostic imaging of breast; N63.12 Unspecified lump in the right breast, upper inner quadrant; N63.22 Unspecified lump in the left breast, upper inner quadrant
CPT/HCPCS: 77062; 77066; G0279

== ENCOUNTER 2024-12-14 15:00 | Outpatient (CLI) | payer BC, SELFPAY ==
--- OUTSIDE RECORDS SUMMARY | 2024-12-15 12:18 | XMS_ITS | Clinical Summary ---
Author Organization [facility] Address [address] [place] [id number] Care Team Providers Care Aquatic Centre Manager Name Role Phone Gabe Coello MD Primary Care Provider [phone] Source Comments This information has been disclosed to you from confidential records protectedfrom disclosure by state law. You shall make no further disclosure of thisinformation without the specific, written, and informed release of theindividual to whom it pertains, or as otherwise permitted by law. A generalauthorization for the release of medical or other information is not sufficientfor the purposes of therelease of HIV test results or diagnoses. [id number] Allergies No known active allergies Medications clindamycin (CLEOCIN) 300 MG capsule Take 1 capsule (300 mg total) by mouth every 6 hours. Active sulfamethoxazol e-trimethoprim (BACTRIM) 200-40 mg/5 mL suspension Take by mouth 2 times a day. Active omeprazole (PRILOSEC) 20 MG capsule Take 1 capsule (20 mg total) by mouth every morning before breakfast. Active Social History Tobacco Use Types Packs/Day Years Used Date Smoking Tobacco: Never Assessed Comments Unknown Sex and Gender Information Value Date Recorded Sex Assigned at Not on file Legal Sex Female 6:53 PM EST Gender Identity Not on file Sexual Orientation Not on file Last Filed Vital Signs Vital Sign Reading Time Taken Comments Blood Pressure 135/83 10/17/2022 6:16 PM EDT Pulse 99 10/17/2022 6:16 PM EDT Temperature 36.9 C (98.5 F) 10/17/2022 6:16 PM EDT Respiratory Rate 19 10/17/2022 6:16 PM EDT Oxygen Saturation 98% 10/17/2022 6:16 PM EDT Inhaled Oxygen Concentration 98% 10/17/2022 6 :16 PM EDT Weight - - Height - - Body Mass Index - - Plan of Treatment Health Maintenance Due Date Last Done Comments Abnormal Colonoscopy Follow Up 1972 Hepatitis C Screening (MyChart) 1972 Alcohol Misuse Screening 1990 Depression Screening 1990 Immunization: DTaP/Tdap/Td (1 - Tdap) 11/24/1991 Immunization: Hepatitis B (1 of 3 - 19+ 3-dose series) 11/24/1991 Cervical Cancer Screening/Pap Smear (MyChart) 11/24/19 03 Mammogram (MyChart) 2012 Cologuard (FIT-DNA) 2017 Colonoscopy 2017 Colorectal Cancer Screening (MyChart) 2017 Stool Testing (gFOBT) 2017 Immunization: Pneumococcal (1 of 1 - PCV) 2022 Immunization: Zoster (1 of 2) 2022 Immunization: COVID-19 ( - 2023- season) 2024 Immunization: Influenza (MyChart) (#1) 2025 HIV Screening Completed 10/17/2022 Procedures Procedure Name Priority Date/Time Associated Diagnosis Comments HIV 1+2 ANTIBODY/ANTIGEN WITH REFLEX STAT 10/17/2022 9:02 PM EDT from Last 3 Months or Most Recently Relevant to Health Maintenance Results * HIV-1 and HIV-2 Antibodies w/Reflex (10/17/2022 9:02 PM EDT) HIV 1+2 AB/AGN Nonreactive Nonreactive 10/17/2022 10:28 PM EDT P[facility]il LAB Serum 10/17/2022 9:02 PM EDT 10/17/2022 9:05 PM EDT Narrative [facility] - 10/17/2022 10:28 PM EDT HIV-1 p24 Antigen and HIV-1/HIV-2 Antibody not detected. us Giovani Michael MD LAB BLOOD ORDERABLES Final Resul t [facility] [address] [place] [address], [facility] from Last 3 Months or Most Recently Relevant to Health Maintenance Insurance BLUE ACCESS Care Teams Aquatic Centre Manager Relationship Specialty Start Date End Date Gabe Coello MD [address] [facility] [address] [place] [address] PCP - General Family Medicine 10/17/22
--- OUTSIDE RECORDS SUMMARY | 2024-12-15 12:18 | XMS_ITS | Encounter Summary ---
Author Organization Healthcare Address [address] [place] [address] Care Team Providers Care Technical Planner Name Role Phone China Pitt APRN Primary Care Provider [phone] Reason for Referral * Consultation (Routine) - Closed Specialty Diagnoses / Procedures Referred By Contrere t Referred To Contact Dentist / Pain Medicine Diagnoses Obstructive sleep apnea (adult) (pediatric) Nati Palencia MD [address] [address] Phone: tel: fax: Elizabeth Vincent, DDS [address] [facility] [address] [place] [address] Phone: tel: fax: Referral ID Status Reason Start Date Expiration Date Visits Re quested Visits Authorized [id number] Closed 03/12/2024 09/11/2025 1 1 Encounter Details Date Type Department Care Team (Late st Contact Info) Description 03/12/2024 [facility] [address] [place] [address] Nati Palencia MD [address] [address] Obstructive sleep apnea (adult) (pediatric) (Primary Dx) Social History Tobacco Use Types Packs/Day Years Used Date Smoking Tobacco: Never Assessed Comments Unknown Sex and Gender Information Value Date Recorded Sex Assigned at Not on file Legal Sex Female 1:23 PM EDT Gender Identity Not on file Sexual Orientation Not on file documented as of this encounter Plan of Treatment Scheduled Referrals Name Type Priority Associated Diagnoses Order Schedule Ambulatory Referral to Orofacial Pain Outpatient Referral Routine Obstructive sleep apnea (adult) (pediatric) Expected: 03/12/2024 (Approximate), Expires: 09/10/2025 documented as of this encounter Visit Diagnoses Diagnosis Obstructive sleep apnea (adult) (pediatric)- Primary documented in this encounter Care Teams Technical Planner Relationship Specialty Start Date End Date China Pitt APRN [address] [place] [address] PCP - General 03/16/24 documented as of this encounter
--- OUTSIDE RECORDS SUMMARY | 2024-12-15 12:18 | XMS_ITS | Clinical Summary ---
Author Organization [facility] Address [address] [address] Phone Care Team Providers Care Solar Consultant Name Role Phone Kishore Dominguez Primary Care Provider [phone] Allergies Active Allergy Reactions Criticality Noted Date Comments Venom-Honey Bee Swelling High 12/04/2012 Medications omeprazole (PRILOSEC) 20 mg Oral Capsule, Delayed Release(E.C.) TSAKE 1 CAPSULE BY MOUTH ONCE DAILY. 07/25/2021 Active loratadine (CLARITIN) 10 mg Oral Tablet Take 10 mg by mouth daily. Active polyethylene glycol (GLYCOLAX) 17 gram/dose Oral Powder DISSOLVE 17 GRAMS OF POWDER (MARKED ON CUP WITH LINE) IN 4 TO 8 OUNCES OF LIQUID AND DRINK ONCE DAILY 12/12/2022 Active Active Problems Problem Noted Date Diagnosed Date Mass of left side of neck 11/15/2022 Bone spur of toe of left foot 07/31/2021 Pain of toe of left foot 07/31/2021 Surgical History Surgery Date Site/Laterality Comments UPPER GASTROINTESTINAL ENDOSCOPY 12/04/2012 N/A N/A Surgeon: Manohar Ta MD; Location: [facility]; Service: COLONOSCOPY 12/04/2012 N/A N/A Surgeon: Manohar Ta MD; Location: [facility]; Service: FOOT SURGERY PARTIAL HYSTERECTOMY 07/25/2017 - 08/24/2017 HERNIA REPAIR 05/27/2017 - 05/26/2018 Medical History Medical History Date Comments Bronchitis, chronic (HCC) Anemia Psoriasis Heartburn Tick bite l. neck area 09/25 023 Family History Medical History Relation Name Comments No Known Problems Brother Heart Disease Father No Known Problems Maternal Grandfather Pacemaker Maternal Grandmother Cancer Maternal Uncle lung No Known Problems Mother No Known Problems Paternal Grandfather No Known Problems Paternal Grandmother No Known Problems Sister Relation Name Status Comments Brother Father Alive Maternal Grandfather Maternal Grandmother Maternal Uncle Mother Alive Paternal Grandfather Paternal Grandmother Sister Alive Social History Tobacco Use Types Packs/Day Years Used Date Smoking Tobacco: Never Smokeless Tobacco: Never Tobacco Cessation:Counseling Given: Not Answered Alcohol Use Standard Drinks/Week Comments No 0 (1 standard drink = 0.6 oz pur e alcohol) Sexually Active Control Partners Comments Yes Surgical Male Comments No Sex and Gender Information Value Date Recorded Sex Assigned at Not on file Legal Sex Female 6:49 PM EDT Gender Identity Not on file Sexual Orientation Not on file Obstetrics History Last Filed Vital Signs Vital Sign Reading Time Taken Comments Blood Pressure 120/80 12/14/2022 8:43 AM EDT Pulse 110 12/14/2022 8:43 AM EDT Temperature 36.7 C (98.1 F) 12/13/2022 2:29 PM EDT Respiratory Rate 12 12/14/2022 8:43 AM EDT Oxygen Saturation 98% 12/14/2022 8:43 AM EDT Inhaled Oxygen Concentration - - Weight 72.2 kg (159 lb 4 oz) 12/14/2022 8:43 AM EDT Height 157.5 cm (5' 2 ) 12/14/2022 8:43 AM EDT Body Mass Index 29.13 12/14/2022 8:43 AM EDT Plan of Treatment Health Maintenance Due Date Last Done Comments Annual Wellness Exam 11/24/1975 Hepatitis B Vaccine (1 of 3 - 19+ 3-dose series) 11/24/1991 Cervical Cancer Screening 1993 Pap Smear 1993 HPV/Pap Cotest 2002 Breast Cancer Screening 2012 Cologuard 2017 FIT 2017 Sigmoidoscopy 2017 Virtual Colonography 2017 Pneumococcal Vaccine 50+ (1 of 1 - PCV) 2022 Zoster (1 of 2) 2022 Colon Cancer Screening 12/04/2022 Colonoscopy 12/04/2022 12/04/2012 COVID-19 Vaccine (3 - 2023-2 5 season) 2024 10/29/2020, 10/08/2020 Influenza Vaccine (#1) 2025 DTaP/TDaP/Td (2 - Td or Tdap) 06/03/2030 06/03/2020 Meningococcal B Vaccine Aged Out No l onger eligible based on patient's age to complete this topic Procedures Procedure Name Priority Date/Time Associated Diagnosis Comments [facility]ED EGD-COLONOSCOPY Routine 12/04/2012 12:00 AM EDT from Last 3 Months or Most Recently Relevant to Health Maintenance Results * [facility]ED EGD-COLONOSCOPY (12/04/2012 12:00 AM EDT) 12/04/2012 Impressions [facility] - 12/04/2012 1:07 PM EDT Plan: Follow-up office visit in 2 months Screening Colonoscopy in 10 years. CBC w/manual diff Omeprazole 20 mg 1 po qday This section is an excerpt of the full report, which can be found by clicking the hyperlink. us Manohar Ta MD GI PROCEDURE ORDERABLES Fin al Result Performing Organization Address City/State/[facility] Co de Phone Number [facility] [address] [place] [address] from Last 3 Months or Most Recently Relevant to Health Maintenance Insurance PHIL O Care Teams Solar Consultant Relationship Specialty Start Date End Date Kishore Dominguez [facility] [address] [place] [address] PCP - General Family Medicine 12/04/12
--- OUTSIDE RECORDS SUMMARY | 2024-12-15 12:18 | XMS_ITS | Clinical Summary ---
Author Organization [facility] Address [address] [place] [address] Care Team Providers Care Account Auditor Name Role Phone YoandyChina colon Prudencio GAN Primary Care Provider Medications No known medications Social History Tobacco Use Types Packs/Day Years Used Date Smoking Tobacco: Never Assessed Comments Unknown Sex and Gender Information Value Date Recorded Sex Assigned at Not on file Legal Sex Female 1:23 PM EDT Gender Identity Not on file Sexual Orientation Not on file Last Filed Vital Signs Vital Sign Reading Time Taken Comments Blood Pressure 103/65 07/06/2024 3:54 PM EST Pulse 62 07/06/2024 3:54 PM EST Temperature 36 C (96.8 F) 07/06/2024 3:54 PM EST Respiratory Rate - - Oxygen Saturation 98% 07/06/2024 3:54 PM EST Inhaled Oxygen Concentration - - Weight 67.1 kg (148 lb) 07/06/2024 3:54 PM EST Height 157.5 cm (5' 2 ) 07/06/2024 3:54 PM EST Body Mass Index 27.07 07/06/2024 3:54 PM EST Plan of Treatment Health Maintenance Due Date Last Done Comments Dental Oral Exam 1972 Dental Prophylaxis 1972 Dental X-Ray: Bitewings 1972 Dental X-Ray: Full Mouth 1972 [facility]-Depression Screening 1972 [facility]-Hepatitis C Screening 1972 [facility]-/Child/Adol SDOH Screenings 1972 [facility]- SDOH Screenings 1990 [facility]-Adult SDOH Screenings 1990 [facility]-Hepatitis B Vaccines (1 of 3 - 19+ 3-dose series) 11/24/1991 [facility]-Pap Smear 1993 [facility]-Cervical Cancer Screening 2002 [facility]-HPV/Cotest 2002 CT Colonography 2017 Colonoscopy 2017 FIT-DNA 2017 FIT 2017 FOBT 2017 Sigmoidoscopy 2017 [facility]-Colorectal Cancer Screening 2017 [facility]-Breast Cancer Screening 2022 [facility]-Pneumococcal Vaccine: 50+ Years (1 of 1 - PCV) 2022 [facility]-Zoster Vaccines (2 of 2) 05/07/2023 03/12/2023 [id number] Vaccine (3 - season) 2024 10/29/2020, 10/08/2020 [facility]-Influenza Vaccine (#1) 2025 03/31/2024, [facility]-DTaP,Tdap,and Td Vaccines (2 - Td or Tdap) 06/03/2030 06/03/2020 [facility]-HIV Screening Completed 10/17/2022 [facility]-Obesity Intervention Completed 025, 05/11/2024, 04/06/2024, Additional history exists HPV Vaccines Aged Out No longer eligi ble based on patient's age to complete this topic [facility]-HIB Vaccines Aged Out No longer e ligible based on patient's age to complete this topic [facility]-Hepatitis A Vaccines Aged Out No longer eligible based on patient's age to complete this topic [facility]-IPV Vaccines Aged Out No longer e ligible based on patient's age to complete this topic [facility]-Rotavirus Vaccines Aged Out No lo nger eligible based on patient's age to complete this topic Insurance PHIL Care Teams Account Auditor Relationship Specialty Start Date End Date China Pitt APRN [address] [place] [address] PCP - General 03/16/24
== END 2024-12-14 23:59 | disposition home or self-care (01) ==
LOC: LAB.DROPOF 12-15 12:16
PROVIDERS: PCP Nurse Practitioner; Visit Provider Nurse Practitioner
DX: R30.0 Dysuria (principal); R31.9 Hematuria, unspecified
CPT/HCPCS: 87086